=== PATIENT | female | born 2000 | race Caucasian/White ===

== ENCOUNTER 2024-05-21 21:05 | Outpatient (CLI) | payer OTHER, SELFPAY ==
[2024-05-21 21:22] LABS: Albumin Level 4.4 g/dl (3.5-5.0); Basophils % 0.8 % (0.1-2.0); Chloride 114 mmol/L (98-107); Eosinophils # 0.1 K/mm3 (0.0-0.4); Eosinophils % 2.6 % (0.1-12.0); Hematocrit 46.1 % (37.0-47.0); Hemoglobin 14.5 g/dL (12.2-16.2); Lymphocytes # 2.5 K/mm3 (0.7-4.5); Lymphocytes % 50.7 % (10-50); Mean Corpuscular HGB Conc 31.4 g/dL (31.8-35.4); Mean Corpuscular Hemoglobin 31.3 pg (27.0-31.2); Mean Corpuscular Volume 99.7 fl (81-99); Mean Platelet Volume 8.9 fl (7.4-10.4); Monocytes # 0.3 K/mm3 (0.1-1.0); Monocytes % 6.2 % (1.7-9.3); Neutrophils % 39.7 % (37.0-80.0); Platelet Count 232 K/mm3 (142-424); Potassium 4.2 mmoL/L (3.5-5.1); Red Blood Count 4.63 M/mm3 (4.20-5.40); Sodium 138 mmol/L (136-145)
[2024-05-21 21:24] LABS: MANUAL DIFFERENTIAL MANUAL DIFFERENTIAL (MANUAL DIFF)
[2024-05-21 21:25] LABS: Alanine Aminotransferase 15 U/L (12-78); Albumin/Globulin Ratio 1.8 (1.1-1.8); Alkaline Phosphatase 44 U/L (38-126); Anion Gap 9.2 mEq/L (5-15); Aspartate Amino Transferase 32 U/L (14-36); Bilirubin,Total 0.7 mg/dl (0.2-1.3); Blood Urea Nitrogen 11 mg/dl (7-17); Calcium 9.4 mg/dl (8.4-10.2); Carbon Dioxide 19 mmol/L (22.0-30.0); Chol/HDL Ratio 2.5 (1-3.5); Cholesterol 122 mg/dl (140-200); Estimated Glomerular Filt Rate 68 ml/min (>60); GFR (African American) 82 ML/MIN (>60); Globulin 2.5 g/dL (1.3-3.2); Glucose 90 mg/dl (74-100); HDL Cholesterol 49 mg/dl (40-60); Total Protein,Serum 6.9 g/dl (6.3-8.2); Triglycerides 47 mg/dl (30-150); VLDL Cholesterol 9 mg/dL (0-40)
[2024-05-21 21:36] LABS: Burr Cells 2+; Direct LDL Cholesterol 51.45 mg/dL (100-129); Eosinophils % 2 % (0-3); Lymphocytes % 50 % (10-50); Monocytes % 9 % (2-9); Neutrophils % 39 % (42-76); Ovalocytes 1+; Platelet Estimate Normal; Total Cells Counted 100
[2024-05-21 21:37] LABS: Poikilocytosis 1+
[2024-05-21 21:51] LABS: Hemoglobin A1C 4.8 % (4.0-6.0)
[2024-05-21 21:56] LABS: Thyroid Stimulating Hormone 1.45 uIU/mL (0.465-4.68)
== END 2024-05-21 23:59 | disposition home or self-care (01) ==
LOC: LAB.DROPOF 21:07
PROVIDERS: PCP Nurse Practitioner; Visit Provider Nurse Practitioner
DX: G43.909 Migraine, unspecified, not intractable, without status migrainosus (principal); F41.8 Other specified anxiety disorders; Z13.1 Encounter for screening for diabetes mellitus; Z13.220 Encounter for screening for lipoid disorders
CPT/HCPCS: 80050; 80053; 80061; 83036; 84443; 85007; 85025

== ENCOUNTER 2024-09-14 08:51 | Outpatient (CLI) | payer OTHER, SELFPAY ==
[2024-09-14 10:14] LABS: HCG,Quantitative 9 mIU/ml (0-5.42)
[2024-09-15 03:36] LABS: Progesterone 0.4 ng/mL (.)
== END 2024-09-14 23:59 | disposition home or self-care (01) ==
PROVIDERS: Visit Provider Nurse Practitioner Obstetrics & Gynecology
DX: Z34.90 Encounter for supervision of normal pregnancy, unspecified, unspecified trimester (principal)
CPT/HCPCS: 36415; 84144; 84702

== ENCOUNTER 2024-09-16 07:42 | Outpatient (CLI) | payer OTHER, SELFPAY ==
[2024-09-16 09:02] LABS: HCG,Quantitative 3 mIU/ml (0-5.42)
== END 2024-09-16 23:59 | disposition home or self-care (01) ==
LOC: LAB 07:42
PROVIDERS: PCP Nurse Practitioner; Visit Provider Nurse Practitioner Obstetrics & Gynecology
DX: Z32.01 Encounter for pregnancy test, result positive (principal)
CPT/HCPCS: 36415; 84702

== ENCOUNTER 2024-12-11 16:46 | Emergency (ER) | payer OTHER, SELFPAY ==
[2024-12-11 16:51] VITALS: BP 133/76; PULSE 80; RESP 16; TEMP 36.7; O2SAT 100; BMI 23.0
--- OUTSIDE RECORDS SUMMARY | 2024-12-11 16:54 | XMS_ITS | Continuity of Care Document ---
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 Sickle cell disease. ? Gout. ? Spinal cord injury. What are the signs or symptoms? Symptoms of this condition include: # Needing to urinate right away (urgently). # Frequent urination or passing small amounts of urine frequently. # Pain or burning with urination. # Blood in the urine. # Urine that smells bad or unusual. # Trouble urinating. # Cloudy urine. # Vaginal discharge, if you are female. # Pain in the abdomen or the lower back. You may also have: # Vomiting or a decreased appetite. # Confusion. # Irritability or tiredness. # A fever. # Diarrhea. The first symptom in older adults may be confusion. In some cases, they may not have any symptoms until the infection has worsened. How is this diagnosed? This condition is diagnosed based on your medical history and a physical exam. You may also have other tests, including: # Urine tests. # Blood tests. # Tests for sexually transmitted infections (STIs). If you have had more than one UTI, a cystoscopy or imaging studies may be done to determine the cause of the infections. How is this treated? Treatment for this condition includes: # Antibiotic medicine. # Bvmq-var-cqsfrqt medicines to treat discomfort. # Drinking enough water to stay hydrated. If you have frequent infections or have other conditions such as a kidney stone, you may need to see a health care provider who specializes in the urinary tract (urologist). In rare cases, urinary tract infections can cause sepsis. Sepsis is a life-threatening condition that occurs when the body responds to an infection. Sepsis is treated in the hospital with IV antibiotics, fluids, and other medicines. Follow these instructions at home: Medicines # Take vbpo-pzq-wutlhhr and prescription medicines only as told by your health care provider. # If you were prescribed an antibiotic medicine, take it as told by your health care provider. Do not stop using the antibiotic even if you start to feel better. General instructions # Make sure you: ? Empty your bladder often and completely. Do not hold urine for long periods of time. ? Empty your bladder after sex. ? Wipe from front to back after a bowel movement if you are female. Use each tissue one time when you wipe. # Drink enough fluid to keep your urine pale yellow. # Keep all follow-up visits as told by your health care provider. This is important. Contact a health care provider if: # Your symptoms do not get better after 1#2 days. # Your symptoms go away and then return. Get help right away if you have: # Severe pain in your back or your lower abdomen. # A fever. # Nausea or vomiting. Summary # A urinary tract infection (UTI) is an infection of any part of the urinary tract, which includes the kidneys, ureters, bladder, and urethra. # Most urinary tract infections are caused by bacteria in your genital area, around the entrance to your urinary tract (urethra). # Treatment for this condition often includes antibiotic medicines. # If you were prescribed an antibiotic medicine, take it as told by your health care provider. Do not stop using the antibiotic even if you start to feel better. # Keep all follow-up visits as told by your health care provider. This is important. This information is not intended to replace advice given to you by your health care provider. Make sure you discuss any questions you have with your health care provider. Please contact the [facility] Urology Department at /[phone] if you have any questions. Document Released: 05/28/2006 Document Revised: 02/25/2019 Document Reviewed: 02/25/2019 Elsevier Interactive Patient Education # 2019 [employer] Extracted from:Title: Eye Care Office Visit Note Author: JODEE SANTILLAN S, OD Date: 12/11/21 Astigmatism of bilateral eyes [facility]ilateral [facility] Combined list of recent functional and cognitive assessments recorded at [facility] [employer] [facility] ([facility]VA Functional [place] Measurement (FIM) Scale: 1 = Total Assistance (Subject = 0% +), 2 = Maximal Assistance (Subject = 25% +), 3 = Moderate Assistance (Subject = 50% +), 4 = Minimal Assistance (Subject = 75% +), 5 = Supervision, 6 = Modified [place] (Device), 7 = Complete [place] (Timely, Safely). Assessment Date/Time Source Assessment Type Assessment Skill Assessment Score Assessment Details No data available for this section
--- NOTE | 2024-12-11 16:59 | XR_ITS ---
PROCEDURE INFORMATION: Exam: XR Left Foot Exam date and time: 12/11/2024 4:54 PM Age: 24 years old Clinical indication: Injury or trauma; Other: Stepped on nail TECHNIQUE: Imaging protocol: Radiologic exam of the left foot. Views: 3 or more views. COMPARISON: No relevant prior studies available. FINDINGS: Bones/joints: Normal. No acute fracture identified. No radiopaque foreign body visible. Soft tissues: Normal. IMPRESSION: No acute findings.
[2024-12-11] MEDS: TET/DIPHTH/PERT-ADULT 0.5ML SYRINGE 0.5 ML IM (17:06)
--- NOTE | 2024-12-11 17:06 | HMH.EDGENADL ---
Discharge Plan Disposition Patient Disposition: Home, Self-Care Condition: Good Prescriptions Prescriptions: New clindamycin HCl 300 mg capsule 300 mg PO TID Qty: 30 0RF No Action bupropion HCl 150 mg tablet extended release 24 hr 150 mg PO DAILY Qty: 90 3RF rizatriptan 10 mg tablet See Rx Instructions PO .COMPLEX Rx Instructions: take 1 tab at onset of headache; if no relief may repeat 1 tab after at least 2 hrs; max = 3 tabs/24 hr PO topiramate 100 mg capsule,extended release 24hr 100 mg PO DAILY Qty: 90 3RF Referrals Follow up/Referrals: Radha Mayfield APRN [Primary Care Provider] - See instructions Activity Restrictions/Add. Instructions Additional Instructions/Restrictions: Keep area clean and dry Antibiotics as ordered Return if worsening or no improvement Follow-up with PCP Clinical Impressions Clinical Impression: Puncture wound Instructions Patient Instructions: DI for Puncture Wound Print Language Print Language: Greenlandic Discharge ED Provider: Devaughn Le Adult HPI <Mulu Weber ([facility]), ASBESTOS COVERER - Last Filed: 12/11/24 17:13> General Chief complaint: Skin/Abscess/Foreign Body Stated complaint: AO 12/11/24 1630 stepped on gulshan nail left foot Time Seen by Provider: 12/11/24 16:58 Mode of Arrival: Ambulatory Source of Information: Patient Description of Symptoms (Recalled from ER Triage Doc. by RN): PT REPORTS STEPPING ON NAIL TO LEFT FOOT, UNKNOWN LAST TETANUS SHOT History of Present Illness HPI narrative: 24-year-old female presents for stepping on a nail. Last tetanus unknown Related Data Home Medications ?Medication ?Instructions ?Recorded ?Confirmed rizatriptan 10 mg tablet See Rx Instructions PO .COMPLEX 05/18/24 06/09/24 Previous Rx's ?Medication ?Instructions ?Recorded bupropion HCl 150 mg 24 hr tablet, 150 mg PO DAILY #90 tabs 05/18/24 extended release topiramate 100 mg capsule,extended 100 mg PO DAILY #90 caps 05/24/24 release 24 hr clindamycin HCl 300 mg capsule 300 mg PO TID #30 caps 12/11/24 Allergies Allergy/AdvReac Type Severity Reaction Status Date / Time Latex, Natural Rubber Allergy Mild Verified 06/09/24 10:45 PFSH <Mulu Weber ([facility] ASBESTOS COVERER - Last Filed: 12/11/24 17:13> [facility] Disclaimer: The information contained in this section may have been updated after the patient was seen, as this information can be updated by other users. Medical History , ASBESTOS COVERER) Encounter for contraceptive surveillance Depression with anxiety Migraine IUD (intrauterine device) in place Surgical History , ASBESTOS COVERER) Hx of rhinoplasty Family History , ASBESTOS COVERER) Coronary artery disease Heart attack Social History , ASBESTOS COVERER) Smoking Status: Current every day smoker tobacco type: smokeless tobacco alcohol intake: never current occupational status: employed Travel in the last 8 weeks: Inside the [place] Have you lived/traveled outside US in past 30 days?: No Contact w/someone who lives/traveled outside US past 30 days?: No Exposure to someone with infectious disease in past 14 days?: No Do you have a fever (greater than 100.4 F or 38 C)?: No Have you tested positive for COVID-19: No Exposed to someone with COVID-19 in past 14 days?: No Do you have a sore throat?: No Do you have a cough?: No Do you have any weakness?: No Do you have any diarrhea?: No Are you experiencing any unusual bleeding?: No Do you have any muscle aches/pain?: No Do you have any abdominal pain?: No Are you experiencing loss of taste or smell?: No Other Medical History Have you received the Pneumonia Vaccine: No <[facility], ASBESTOS COVERER - Last Filed: 12/11/24 17:13> ROS Obtained: Yes Systems reviewed as appropriate & no additional complaints except as documented Integumentary/Breasts Skin/Breast: Reports system reviewed and no additional complaints, except as documented and Reports as per HPI Physical Exam <Mulu [facility] ASBESTOS COVERER - Last Filed: 12/11/24 17:13> General General appearance: alert and in no apparent distress Head Head exam: atraumatic Eye Eye exam: Present normal appearance ENT ENT exam: Present normal exam Respiratory Respiratory exam: Present normal lung sounds bilaterally Cardiovascular Cardiovascular exam: Present regular rate and normal rhythm Expanded Lower Extremity Exam Left: Bottom foot image: 1. Puncture wound Neurological Exam Neurological exam: Present alert and oriented X3 Skin Skin exam: Present warm Medical Decision Making <Mulu Weber ([facility]), ASBESTOS COVERER - Last Filed: 12/11/24 17:13> Medical Records Medical records reviewed: Yes I reviewed the patient's medical records. Screening: Per USPSTF and CDC recommendations, given the prevalence of disease in our region, it is our hospital?s policy to screen for HIV and viral Hepatitis for all patients aged 18 and over and those with ongoing risk factors. Wilmer Inquiry Pt receiving controlled substance: No Vital Signs: 12/11/24 16:51 12/11/24 17:24 Temperature 98.0 F 98 F Temperature Source Oral Pulse Rate 74 Pulse Rate [Radial] 80 Respiratory Rate 16 18 Blood Pressure 127/81 Blood Pressure [Right Arm] 133/76 Blood Pressure Mean [Right Arm] 95 Blood Pressure Source [Right Arm] Automatic Cuff Blood Pressure Position [Right Arm] Sitting 02 Sat by Pulse Oximetry 100 Oxygen Delivery Method Room Air Orders (Tests/Meds): ED MEDICATIONS Discontinued Medications Generic Name Dose Route Start Last Admin Trade Name Freq PRN Reason Stop Dose Admin Tetanus/Reduced Diphtheria/Acell Pertussis 0.5 ml 12/11/24 17:00 12/11/24 17:06 Tet/Diphth/Pert-Adult 0.5ml Syringe IM 12/11/24 17:01 0.5 ml .ONCE ONE Administration ORDERS Category Date Time Status Foot XR left minimum 3 views [XR foot LT min 3V] Stat Exams 12/11/24 16:59 Completed Medical Decision Narrative: In summary patient is a 24-year-old female who presents to the emergency department for evaluation of stepping on a nail that went through her croc and into her foot. Patient is hemodynamically stable upon arrival, afebrile. Small puncture wound noted to the outer bottom of the left foot. Differential diagnosis includes puncture wound. Initial workup will be conducted with x-ray, tetanus shot. Initial inventions include x-ray. Initial workup reviewed by me x-ray negative. Upon repeat evaluation patient sitting comfortably in the chair with no complaints. Given this patient appropriate for discharge at this time with a prescription for antibiotics. <Devaughn Le MD - Last Filed: 12/12/24 19:24> Vital Signs: 12/11/24 16:51 12/11/24 17:24 Temperature 98.0 F 98 F Temperature Source Oral Pulse Rate 74 Pulse Rate [Radial] 80 Respiratory Rate 16 18 Blood Pressure 127/81 Blood Pressure [Right Arm] 133/76 Blood Pressure Mean [Right Arm] 95 Blood Pressure Source [Right Arm] Automatic Cuff Blood Pressure Position [Right Arm] Sitting 02 Sat by Pulse Oximetry 100 Oxygen Delivery Method Room Air Orders (Tests/Meds): ED MEDICATIONS Discontinued Medications Generic Name Dose Route Start Last Admin Trade Name Freq PRN Reason Stop Dose Admin Tetanus/Reduced Diphtheria/Acell Pertussis 0.5 ml 12/11/24 17:00 12/11/24 17:06 Tet/Diphth/Pert-Adult 0.5ml Syringe IM 12/11/24 17:01 0.5 ml .ONCE ONE Administration ORDERS Category Date Time Status Foot XR left minimum 3 views [XR foot LT min 3V] Stat Exams 12/11/24 16:59 Completed Medical Decision Narrative: In summary patient is a 24-year-old female who presents to the emergency department for evaluation of stepping on a nail that went through her croc and into her foot. Patient is hemodynamically stable upon arrival, afebrile. Small puncture wound noted to the outer bottom of the left foot. Differential diagnosis includes puncture wound. Initial workup will be conducted with x-ray, tetanus shot. Initial inventions include x-ray. Initial workup reviewed by me x-ray negative. Upon repeat evaluation patient sitting comfortably in the chair with no complaints. Given this patient appropriate for discharge at this time with a prescription for antibiotics. I was consulted by the [place], and we discussed the complexity of the problems being addressed.I approved the treatment and management plan for this patient?s care in the Emergency Department, thus performing a substantive portion of the medical decision making.Signed, Devaughn Le MD [facility] Critical Care <Mulu Weber ([facility]), ASBESTOS COVERER - Last Filed: 12/11/24 17:13> Critical Care Time Critical Care Time: No
[2024-12-11 17:24] VITALS: BP 127/81; PULSE 74; RESP 18; TEMP 36.6; O2SAT 99
== END 2024-12-11 17:25 | disposition home or self-care (01) ==
PROVIDERS: Emergency Provider Emergency Medicine; PCP Nurse Practitioner
DX: S91.332A Puncture wound without foreign body, left foot, initial encounter (principal); W45.0XXA Nail entering through skin, initial encounter; Z23 Encounter for immunization
CPT/HCPCS: 90471; 99283; 73630; 90715

== ENCOUNTER 2025-01-16 08:30 | Emergency (ER) | payer OTHER, SELFPAY ==
--- OUTSIDE RECORDS SUMMARY | 2025-01-16 08:37 | XMS_ITS | Continuity of Care Document ---
Author Name [facility] Organization [facility] Care Team Providers Care Senior Advocate Name Role Phone [facility] Unavailable Unavailable Problems Combined list of problems from [facility] facilities. It does not include entries that were removed or entered in error. 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) Active Condition 0420[facility] Headache Active Condition [facility] Headache due to injury of head and neck Active Condition [facility] IUD change due Active Condition 0420[facility] Migraine variants Active Condition [facility]20 [facility] Migraine without aura Active Condition [facility] Tension headache [facility] UTI - Urinary tract infection Active Condition [facility] Medications Combined list of outpatient medications from [facility] facilities.Medications provided include 1) outpatient medications from the last 15 months, and 2) patient-reported medications. Medication Details Route Status Patient Instructions Prescription Expires Prescription Number Last Dispense Date Ordering Provider Order Date Order Qty Source acetaminoph en 500 mg oral tablet acetamin ophen 500 mg oral tablet Start Date: 07/23/19 Stop Date: 10/02/21 Status: Anjana renee Repeat number: 1 Discont inued 10/02/20212021 No Facilit y Access amitriptyli ne 10 mg oral tablet 1 tab(s), Oral, every day at bedtime, PRN headache , # 30 tab(s), 0 total refill(s ), Maintena nce, Pharmacy : [facility] Oral (given by mouth) Discont inued 10/01/2022 2 2022 30.0 0420[facility] amitriptyli ne 10 mg oral tablet 1 tab(s), Oral, every day at bedtime, PRN headache , # 30 tab(s), 0 total refill(s ), [facility], Pharmacy : [facility] Oral (given by mouth) Discont inued 11/20/20222022 30.0 0420[facility] amitriptyli ne 10 mg oral tablet 1 tab(s), Oral, every day at bedtime, PRN headache , # 30 tab(s), 3 total refill(s ), [facility], Pharmacy : [facility] Oral (given by mouth) Discont inued 01/10/2023 3 2022 30.0 0420[facility] BUPROPION XL (bupropion HCl), 150 MG, TAB ER 24H, ORAL, [employer], 500 ea. BOTTLE Active [id number] 4 2023 90 Pharmac y Data Transac tion Service Facilit y BUPROPION XL (bupropion HCl), 150 MG, TAB ER 24H, ORAL, [facility], 500 ea. BOTTLE Active [id number] 4 2023 90 Pharmac y Data Transac tion Service Facilit y chlorhexidi ne 0.12% mucous membrane liquid chlorhex idine 0.12% mucous membrane liquid Start Date: 07/23/19 Stop Date: 10/02/21 Status: Anjana renee Repeat number: 1 Discont inued 10/02/20212021 No Facilit y Access Diflucan 150 mg oral tablet 1 tab(s), Oral, As Directed , take 1 tab every 72h, # 2 tab(s), 0 total refill(s ), Acute, 01/10/23 12:10:00 PM CDT, Pharmacy : [facility] Oral (given by mouth) Discont inued 01/10/2023 3 2022 2.0 0420[facility] doxepin 3 mg oral tablet 1 tab(s), Oral, every day at bedtime, as needed for sleep, # 30 tab(s), 5 total refill(s ), Acute, [facility] : [id number] Oral (given by mouth) Discont inued 09/25/20232023 30.0 0067[facility] Excedrin Oral, every 6 hr, 0 total refill(s ), Maintena nce Oral (given by mouth) Discont inued 10/01/20222022 0420[facility] Flexeril Oral, TID, 0 total refill(s ), Maintena nce Oral (given by mouth) Discont inued 09/25/20232023 0420[facility] fluconazole 150 mg oral tablet 1 tab(s), Oral, As Directed , X 1 days, # 1 tab(s), 0 total refill(s ), Acute, 11/21/22 9:10:00 AM CDT, Pharmacy : [facility] Oral (given by mouth) Complet ed 11/21/2022 3 2022 1.0 0420[facility] ibuprofen 600 mg oral tablet ibuprofe n 600 mg oral tablet Start Date: 07/23/19 Status: Ordered Repeat number: 1 Ordered 2019 No Facilit y Access PreviDent 5000 Booster 1.1% topical paste See Instruct ions, Apply 1 thin ribbon to toothbru sh. Elaine thorough ly at bedtime as directed by provider ., # 51 g, 0 total refill(s ), Maintena nce, Pharmacy : [facility] Discont inued 04/16/2022 2 2021 51.0 0420[facility] RIZATRIPTAN (rizatripta n benzoate), 10 MG, TABLET, ORAL, [employer], 18 ea. BLIST PACK Active [id number] 4 2023 36 Pharmac y Data Transac tion Service Facilit y RIZATRIPTAN (rizatripta n benzoate), 10 MG, TABLET, ORAL, [employer], 18 ea. BLIST PACK Active [id number] 4 2023 12 Pharmac y Data Transac tion Service Facilit y rizatriptan 10 mg oral tablet See Instruct ions, Take one tablet by mouth at onset of migraine headache , may repeat dose every 2 hours up to a maximum of 30 mg in 24 hours, # 6 tab(s), 0 total refill(s ), Maintena nce Discont inued 11/20/20232023 6.0 0420[facility] rizatriptan 10 mg oral tablet See Instruct ions, Take one tablet by mouth at onset of migraine headache , may repeat dose every 2 hours up to a maximum of 30 mg in 24 hours, # 12 tab(s), 1 total refill(s ), Acute, 02/19/24 11:00:00 PM CDT, Pharmacy : [id number] Complet ed 02/20/20242023 12.0 0420[facility] SUMAtriptan 25 mg oral tablet See Instruct ions, Take 1 tablet by mouth at onset of migraine headache . May repeat dose after 2 hours if needed. Max of 100mg within 24 hours, # 9 tab(s), 0 total refill(s ), Maintena nce, Pharmacy : [facility] Discont inued 05/13/2022 2 2021 9.0 0420[facility] SUMAtriptan 25 mg oral tablet See Instruct ions, Take 1 tablet by mouth at onset of migraine headache . May repeat dose after 2 hours if needed. Max of 100mg within 24 hours, # 9 tab(s), 0 total refill(s ), Maintena nce, Pharmacy : [facility] Discont inued 10/01/2022 2 2022 9.0 0420[facility] TOPIRAMATE (TOPIRAMATE ), 100 MG, TABLET, ORAL, [employer] 60 ea. BOTTLE Active [id number] 4 2023 180 Pharmac y Data Transac tion Service Facilit y TOPIRAMATE (TOPIRAMATE ), 100 MG, TABLET, ORAL, [employer] 60 ea. BOTTLE Active [id number] 4 2023 180 Pharmac y Data Transac tion Service Facilit y topiramate 25 mg oral capsule 1 cap(s), Oral, BID, 0 total refill(s ), Maintena nce Oral (given by mouth) Ordered 2023 0420[facility] Wellbutrin XL 150 mg/24 hours oral tablet, extended release 1 tab(s), Oral, every 24 hr, # 30 tab(s), 0 total refill(s ), Maintena aze, Pharmacy : [id number] Oral (given by mouth) Discont inued 09/30/20232023 30.0 0420[facility] Wellbutrin XL 150 mg/24 hours oral tablet, extended release 1 tab(s), Oral, every 24 hr, # 30 tab(s), 0 total refill(s ), Maintena aze, Pharmacy : [facility] Oral (given by mouth) Discont inued 10/28/20232023 30.0 0420[facility] Wellbutrin XL 150 mg/24 hours oral tablet, extended release 1 tab(s), Oral, every 24 hr, # 90 tab(s), 3 total refill(s ), Maintena nce, Pharmacy : [facility] Oral (given by mouth) Ordered 2023 90.0 0420[facility] Wellbutrin XL 150 mg/24 hours oral tablet, extended release 1 tab(s), Oral, every 24 hr, # 60 tab(s), 1 total refill(s ), Hard Stop, Pharmacy : [id number] Oral (given by mouth) Complet ed 10/31/20232023 60.0 0420[facility] Wellbutrin XL 300 mg/24 hours oral tablet, extended release 1 tab(s), Oral, Daily, # 90 tab(s), 3 total refill(s ), Maintena nce, Pharmacy : [facility] Oral (given by mouth) Discont inued 04/16/2022 2 2021 90.0 [facility]20[facility] Allergies, Adverse Reactions, Alerts Combined list of allergies from Department of Defense and Veterans Affairs facilities. It does not include entries that were removed or entered in error. Substance Category Reaction Severity Reaction type Status Date Reported Comments Source LATEX, NATURAL RUBBER {Cla } Drug allergy (disorder) Rash or Itch, Other: POSITIVE LATEX IGE. active 9 [facility] LATEX, NATURAL RUBBER {Cla } Allergy to substance Rash or Itch Moderate Active [address] [place] [address] Immunizations Combined list of available immunizations from the Department of Defense and Veterans Affairs facilities. Immunization Series Date Given Administered By Site Reaction Lot Number CVX Code Drug Labeling Specialist Status Comments Source influenza virus vaccine, inactivated 2022 [id number] complet ed influenza virus vaccine, inactivat ed 06/19/23 Recorded [facility]20[facility] influenza, injectable, quadrivalent, contains preservative 0 2021 [id number] 158 Seqirus (SEQ) comple t ed influenza , injectabl e, quadrival ent, contains preservat kassandra DoD Influenza, injectable, quadrivalent, preservative free 0 2020 [id number] [employer] (CSL) complet ed Influenza , injectabl e, quadrival ent, preservat kassandra free [facility] SARS-COV-2 (COVID-19) vaccine, mRNA, spike protein, LNP, preservative free, 30 mcg/0.3mL dose 2 2020 [id number] [employer] (PFR) complet ed SARS-COV- 2 (COVID-19 ) vaccine, mRNA, spike protein, LNP, preservat kassandra free, 30 mcg/0.3mL dose DoD SARS-COV-2 (COVID-19) vaccine, mRNA, spike protein, LNP, preservative free, 30 mcg/0.3mL dose 1 2020 [id number] 208 [employer] (PFR) complet ed SARS-COV- 2 (COVID-19 ) vaccine, mRNA, spike protein, LNP, preservat kassandra free, 30 mcg/0.3mL dose DoD Influenza, injectable, quadrivalent, preservative free 0 2020 [id number] 150 Se[employer]irus (SEQ) complet ed Influenza , injectabl e, quadrival ent, preservat kassandra free DoD influenza, injectable, quadrivalent- pf 2018 [id number] 039 150 Se[employer]irus complet ed influenza , injectabl e, quadrival ent-pf 06/23/19 Given Ambulat ory Pharmac y influenza, injectable, quadrivalent- pf 2018 [id number] 039 150 Se[employer]irus complet ed influenza , injectabl e, quadrival ent-pf 06/23/19 Given Ambulat ory Pharmac y Influenza, injectable, quadrivalent, preservative free 0 2018 [id number] 039 150 Se[employer] (SEQ) complet ed Influenza , injectabl e, quadrival ent, preservat kassandra free DoD hepatitis A-hepatitis B vaccine 2017 [id number] 104 GlaxoSmithKli ne complet ed hepatitis A-hepatit is B vaccine 08/03/18 Given Ambulat ory Pharmac y hepatitis A-hepatitis B vaccine 2017 [id number] 104 GlaxoSmithKli ne complet ed hepatitis A-hepatit is B vaccine 08/03/18 Given Ambulat ory Pharmac y hepatitis A and hepatitis B vaccine 3 2017 [id number] 104 [facility] (SKB) complet ed hepatitis A and hepatitis B vaccine DoD influenza, injectable, quadrivalent- pf 2017 [id number] 150 Seqirus complet ed influenza , injectabl e, quadrival ent-pf 06/03/18 Given Ambulat ory Pharmac y influenza, injectable, quadrivalent- pf 2017 [id number] 150 Se[employer]irus complet ed influenza , injectabl e, quadrival ent-pf 06/03/18 Given Ambulat ory Pharmac y Influenza, injectable, quadrivalent, preservative free 0 2017 [id number] 150 Seqirus (SEQ) comple t ed Influenza , injectabl e, quadrival ent, preservat kassandra free DoD hepatitis A-hepatitis B vaccine 2017 [id number] 104 GlaxoSmithKli ne complet ed hepatitis A-hepatit is B vaccine 11/21/17 Given Ambulat ory Pharmac y hepatitis A-hepatitis B vaccine 2017 [id number] 104 GlaxoSmithKli ne complet ed hepatitis A-hepatit is B vaccine 11/21/17 Given Ambulat ory Pharmac y hepatitis A and hepatitis B vaccine 2 2017 [id number] 104 [employer]Kline (SKB) complet ed hepatitis A and hepatitis B vaccine DoD measles and rubella virus vaccine 0 2017 04 () Not Given measles and rubella virus vaccine DoD varicella virus vaccine 0 2017 21 () Not Given varicella virus vaccine DoD hepatitis A-hepatitis B vaccine 2017 [id number] 104 GlaxoSmithKli ne complet ed hepatitis A-hepatit is B vaccine 10/14/17 Given Ambulat ory Pharmac y hepatitis A-hepatitis B vaccine 2017 [id number] 104 GlaxoSmithKli ne complet ed hepatitis A-hepatit is B vaccine 10/14/17 Given Ambulat ory Pharmac y hepatitis A and hepatitis B vaccine 1 2017 [id number] 104 [employer] (SKB) complet ed hepatitis A and hepatitis B vaccine DoD adenovirus vaccine, live 2017 [id number] 143 complet ed adenoviru s vaccine, live 10/09/17 Given Ambulat ory Pharmac y adenovirus vaccine, live 2017 [id number] 7 143 complet ed adenoviru s vaccine, live 10/09/17 Given Ambulat ory Pharmac y Adenovirus, type 4 and type 7, live, oral 0 2017 [id number] 7 143 (TRN) complet ed Adenoviru s, type 4 and type 7, live, oral DoD tetanus, diphtheria, acellular pertu is 2017 [id number] 115 sanofi pasteur complet ed tetanus, diphtheri a, acellular pertussis 10/08/17 Given Ambulat ory Pharmac y meningococcal A,C,Y,W-135 (MCV4P) 2017 [id number] 114 sanofi pasteur complet ed meningoco ccal A,C,Y,W-1 35 (MCV4P) 10/08/17 Given Ambulat ory Pharmac y poliovirus vaccine, inactivated 2017 [id number] 10 sanofi pasteur complet ed polioviru s vaccine, inactivat ed 10/08/17 Given Ambulat ory Pharmac y Influenza, inj, MDCK, quadrivalent- pf 2017 [id number] 171 Seqirus complet ed Influenza , inj, MDCK, quadrival ent-pf 10/08/17 Given Ambulat ory Pharmac y Influenza, inj, MDCK, quadrivalent- pf 2017 [id number] 171 Seqirus complet ed Influenza , inj, MDCK, quadrival ent-pf 10/08/17 Given Ambulat ory Pharmac y tetanus, diphtheria, acellular pertu is 2017 [id number] 115 sanofi pasteur complet ed tetanus, diphtheri a, acellular pertussis 10/08/17 Given Ambulat ory Pharmac y meningococcal A,C,Y,W-135 (MCV4P) 2017 [id number] 114 sanofi pasteur complet ed meningoco ccal A,C,Y,W-1 35 (MCV4P) 10/08/17 Given Ambulat ory Pharmac y poliovirus vaccine, inactivated 2017 [id number] 10 sanofi pasteur complet ed polioviru s vaccine, inactivat ed 10/08/17 Given Ambulat ory Pharmac y poliovirus vaccine, inactivated 0 2017 [id number] 10 Sanofi Pasteur ([facility]) complet ed polioviru s vaccine, inactivat ed DoD meningococcal polysaccharid e (groups A, C, Y and W-135) diphtheria toxoid conjugate vaccine (MCV4P) 0 2017 [id number] 114 Sanofi Pasteur ([facility]) complet ed meningoco ccal polysacch aride (groups A, C, Y and W-135) diphtheri a toxoid conjugate vaccine (MCV4P) DoD tetanus toxoid, reduced diphtheria toxoid, and acellular pertu is vaccine, adsorbed 0 2017 [id number] 115 Sanofi Pasteur ([facility]) complet ed tetanus toxoid, reduced diphtheri a toxoid, and acellular pertussis vaccine, adsorbed DoD Influenza, injectable, Madin Naz Canine Kidney, preservative free, quadrivalent 0 2017 [id number] 171 Seqirus (SEQ) comple t ed Influenza , injectabl e, Madin Naz Canine Kidney, preservat kassandra free, quadrival ent DoD Results Combined list of recent chemistry, hematology and other laboratory results from Department of Defense and Veterans Affairs, ranging from 15 months to all on record, depending upon the facility. Order Name Results Value Reference Range Date Interpretation Specimen Comments Source Infectio us Disease HIV-1/2 AG/AB 4G CDD LC NEGATIVE 07/17 Result Comment: Performed At: 1 [facility] [id number] [place] [address] [address] [place] [address] YAW ENGLISH PHD Ph:[phone] [facility] Infectio us Disease Source of Test.LC PD HealthAs sess ( 3 2:54 PM) 07/17 N [facility] Urinalys is WBC Ur LC None seen 11/20 zzIOC Standard Urinalys is RBC Ur LC 0-2 11/20 zzIOC Standard Urinalys is Epithelial Cells (non renal) Ur LC 0-10 11/20 zzIOC Standard Urinalys is Casts Ur LC None seen 11/20 zzIOC Standard Urinalys is Bacteria LC Few 11/20 Result Comment: Performed At: [address] [id number] Ankit Johnson MD Ph:[phone] zzIOC Standard Chemistr y Bilirubin Ur LC Negative 11/20 [facility] Chemistr y Appearance LC Clear 11/20 [facility] Chemistr y Occult Blood Ur LC Trace 11/20 A [facility] Chemistr y Urinalysis Reflex LC COMMENT 11/20 Result Comment: This specimen has reflexed to a Urine Culture. Performed At: [address] [id number] Ankit Johnson MD Ph:[phone] 0420[facility] Chemistr y Urine Color LC Yellow 11/20 0420[facility] Chemistr y Ketones Ur LC Negative 11/20 0420[facility] Chemistr y pH Ur LC 7.5 11/20 [facility] Microscopi c Exam LC See below: 11/20 Result Comment: Microscopic was indicated and was performed. Performed At: [address] [id number] Ankit Johnson MD Ph:[phone] 0420[facility] Chemistr y Glucose Ur LC Negative 11/20 0420[facility] Chemistr y Specific [place] 1.014 11/20 042-[facility] Chemistr y Nitrite, Urine Ur LC Negative 11/20 0420[facility] Chemistr y Protein Ur LC Negative 11/20 0420[facility] Chemistr y Urobilinog en,Semi-Qn Ur LC 0.2 mg/dL 11/20 0420[facility] Chemistr y WBC Esterase Ur LC Trace 11/20 A 0420A-[facility] AP Specimen s Pap Lb (Liquid-ba sed) LC Note 12/10 Result Comment: TESTS RESULT FLAG UNITS REF RANGE LAB ----- Clinician Provided Cytology Information No. of containers. .01 ThinPrep Vial DIAGNOSIS: 01 NEGATIVE FOR INTRAEPITHE LIAL LESION OR MALIGNANCY. Specimen adequacy: 01 Satisfactor y for evaluation. Endocervica l and/or squamous metaplastic cells (endocervic al component) are present. Performed by: 01 Sebastian Yanezist (ASCP) . 01 Note: Note 02 The [...] tical Abnormal ----- Performed at: [address] [address] Alex Pham MD, Phone: [address] [address] Alex Pham MD, Phone: Performed At: [address] [id number] Ankit Johnson MD Ph:[phone] [address] [place] [address] Vital Signs Combined list of inpatient and outpatient Vital Signs from Department of Defense and Veterans Affairs, ranging from 12 months to all on record, depending upon the facility. Vital Sign Value Date Comments Source Mean Arterial Pressure, Calc 90 mm[Hg] 11/22/2022 12:48:[address] [place] [address] Peripheral Pulse Rate 83 bpm 11/22/2022 12:48:00 [facility] Respiratory Rate 18 br/min 11/22/2022 12:48:[address] [place] [address] Temperature Oral 36.8 Tamiko 11/22/2022 12:48:00 [facility] Systolic Blood Pressure 112 mm[Hg] 11/23/19 23 12:48:00 [facility] Diastolic Blood Pressure 79 mm[Hg] 023 12:48:00 [facility] Peripheral Pulse Rate 69 bpm 12/10/2021 12:23:00 [facility] Mean Arterial Pressure, Calc 99 mm[Hg] 12/10/2021 12:23:00 [facility] Temperature Oral 37 Tamiko 12/10/2021 12:23:00 [facility] Systolic Blood Pressure 124 mm[Hg] 12/11/19 22 12:23:00 [facility] Diastolic Blood Pressure 87 mm[Hg] 022 12:23:00 [facility] Peripheral Pulse Rate 89 bpm 11/20/2022 13:46:00 [facility] Mean Arterial Pressure, Calc 93 mm[Hg] 11/20/2022 13:46:00 [facility] Systolic Blood Pressure 117 mm[Hg] 11/21/19 23 13:46:00 [facility] Diastolic Blood Pressure 81 mm[Hg] 023 13:46:00 [facility] Encounters Combined list of: 1) Encounters from Department of Veterans Affairs facilities going backup to the last 18 months, not all VA inpatient encounters are included; 2) Encounters from the Department of Defense facilities going backup to 280 months. Location Location Details Encounter Type Encounter Number Reason For Visit Attending Provider ADM Date DC Date Status Disposition Source [facility](Optomet ry [place]) OUTPATIENT [id number] ROUT EYE EXAM YANET MCBRIDE 09/07 Released w/o Limitations [facility](Opt ometry [place]) [facility](Allergy [facility]) OUTPATIENT [id number] CONTACT DERMATI ANASTACIA RETANA 12/09 Released w/o Limitations [facility](All ergy Clinic [facility]) [facility]) OUTPATIENT [id number] Allergy f/u DREW SMITHD 12/17 Released w/o Limitations [facility](All ergy Clinic [facility]) [facility]) OUTPATIENT [id number] skin test DREW SMITHD 12/22 Released w/o Limitations [facility](All ergy Clinic [facility]) [facility](Dermato logy [place]) OUTPATIENT [id number] ALLERGI C CONTACT DERMATI TIS DUE TO OTHER AGENTS KARI CHIN 05/28 Released w/o Limitations [facility](Tucker matolog y [place]) [facility]([employer] [place]) OUTPATIENT [id number] Well Women Exam JAVIER ANAYA 11/03 Released w/o Limitations [facility]([employer] [place]) [facility]([employer] [place]) OUTPATIENT [id number] control . JAVIER ANAYA 11/09 Released w/o Limitations [facility]([employer] [place]) [facility]([employer] [place]) TELE CONSULT [id number] Notes Entered by: ELKIN URBINA N 14 Jun 2020 0951 ------- ------- ------- ------- -- Request pap smear result ELKIN URBINA 06/14 [facility]([employer] [place]) [facility](COVID19 Scrn & Test [facility]) OUTPATIENT [id number] ACTIVE DUTY = AD,HRAC CARLOS [email or web address] NANCY THEODORE 01/24 Released w/o Limitations [facility](COV ID19 Scrn & Test [facility]) [facility](COVID19 Scrn & Test [facility]) OUTPATIENT [id number] SYMPTOM ATIC ACTIVE DUTY HAROON HURD 04/26 Released w/o Limitations [facility](COV ID19 Scrn & Test [facility]) [facility](Emergen cy Medicine [facility]) OUTPATIENT [id number] KEYSHA SANCHEZ 04/26 Released w/o Limitations [facility](Annabel rgency Medicin e NMCP) [facility](Sl eep Clinic [facility]) OUTPATIENT [id number] G47.33 Sleep Apnea/f /[id number]/ no email LEYDI HERNANDEZ 10/22 Released w/o Limitations [facility]( Sleep Clinic [facility]) Procedures Combined list of: 1) Procedures from Department of Veterans Affairs facilities [facility], not all VA non-surgical procedures are included; 2) All procedures from the Department of Defense facilities. Procedure Procedure Type Code Date Perfomer Comments Sourc e SCREENING PAPANICOLAOU SMEAR; OBTAINING, PREPARING AND CONVEYANCE OF CERVICAL OR VAGINAL SMEAR TO LABORATORY 2019 [facility] PERCUTANEOUS TESTS (SCRATCH, PUNCTURE, PRICK) WITH ALLERGENIC EXTRACTS, IMMEDIATE TYPE REACTION, INCLUDING TEST INTERPRETATION AND REPORT, SPECIFY NUMBER OF TESTS 2018 [facility] FITTING OF SPECTACLES, EXCEPT FOR APHAKIA; MONOFOCAL 2018 [facility] Allergy Percutaneous tests - allergenic extracts Allergy Percutaneous tests - allergenic extracts [id number] 2018 ANASTACIA SMITH Allergy 38Food & Aeroallergen pricks applied to bilateral forearms . Extracts provided by [facility] and supplied by [facility]. Serums 27 Jan 2019.Allergy skintest procedure by Meg Clarke LPN [facility] Spectacles Services Fitting Monofocals (Not For Aphakia) [facility] Fitting Monofocals (Not For Aphakia) [id number] 2018 YANET MCBRIDE [facility] Determination Of Refractive State Determination Of Refractive State [id number] 2018 YANET MCBRIDE [facility] Ophthalmological New Patient Start Comprehensive Care Ophthalmological New Patient Start Comprehensive Care [id number] 2018 YANET MCBRIDE [facility] Screening papanicolaou smear; obtaining, preparing and conveyance of cervical or vaginal smear to laboratory JAVIER ANAYA [facility] Non-Physician Phone Call To Patient/Provider Brief (5-10min) Non-Physician Phone Call To Patient/Provider Brief (5-10min) [id number] NANCY THEODORE [facility] Patient education, not otherwise cla ified, non-physician provider, individual, per se NANCY Garcia [facility] Brief communication technology-based service, e.g. virtual check-in, by a physician or other qualified health care profe bel who can report evaluation and management services, provided to an established patient, not originating from a related E/M service provided within the previous 7 days nor leading to an E/M service or procedure within the next 24 hours or soonest available appointment; 5-10 minutes of medical discu avelino NANCY THEODORE [facility] No data available for this section Ambulato ry Pharmacy Social History Combined list of available smoking, tobacco, and other social history from [facility] and [facility] facilities. Social History Type Response Date Comment [facility] e Sex Representation Female (finding) 05/22/2020 Unknown Organization This section is an empty social history section. [facility] Sexual Orientation Ambula tory Pharmacy Gender identity Ambulator y Pharmacy Assessment and Plan Combined list of future care activities from Department of Defense and Veterans Affairs facilities (e.g., assessment and plan notes, appointments, orders, and referrals). Additional future care activities may be listed in the Plan of Care section. Result Assessment and Plan Date Source Assessment and Plan Extracted from:Title : PHA/MHA Author: JUNIE NEWMAN NP Date: 12/19/23 1.?EXAM/ASSESSMENT, OCCUPATIONAL, LABORATORY APPARATUS [place] PERIODIC HEALTH ASSESSMENT (PHA) Online PHA/MHA complete. ?Please see EPHA for full details.?Gen preventative health discussion with age specific guidelines/recommendations discussed.?Member meets [facility] medical standards IAW COMDTINST M600.1 chapter 3 at this time. AFFD and cleared for retention and mobility.?? ? -? ?No?referrals indicated at this time _ ? -? ?Is?due for IMR requirements _Pap smear already has referral ? -? ?Not?due for preventative screening _ ? F/u PRN. ? ? ? Extracted from:Title: Rx renewed Author: JUNIE NEWMAN NP Date: 11/20/23 1.?Migraine without aura Ho migraine [...] Extracted from:Title: Rx refill Author: JUNIE NEWMAN ZONE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
[2025-01-16 08:39] VITALS: BP 121/86; PULSE 85; RESP 20; TEMP 36.8; O2SAT 100; BMI 22.6
--- NOTE | 2025-01-16 09:38 | ED_ITS ---
Discharge Plan Disposition Patient Disposition: Home, Self-Care Prescriptions Prescriptions: New prednisone 50 mg tablet 50 mg PO DAILY 5 Days Qty: 5 0RF Rx Instructions: Please begin 1 day after ED visit No Action bupropion HCl 150 mg tablet extended release 24 hr 150 mg PO DAILY Qty: 90 3RF rizatriptan 10 mg tablet See Rx Instructions PO .COMPLEX Rx Instructions: take 1 tab at onset of headache; if no relief may repeat 1 tab after at least 2 hrs; max = 3 tabs/24 hr PO topiramate 100 mg capsule,extended release 24hr 100 mg PO DAILY Qty: 90 3RF clindamycin HCl 300 mg capsule 300 mg PO TID Qty: 30 0RF Referrals Follow up/Referrals: Radha Mayfield APRN [Primary Care Provider] - See instructions Activity Restrictions/Add. Instructions Additional Instructions/Restrictions: Your symptoms appear to be consistent with localized contact dermatitis likely secondary to plant oil exposure such as would be from poison stephanie or poison sumac. Does not appear to be herpetic in nature. Please follow-up with dermatology if not improving in 1 to 2 weeks. Clinical Impressions Clinical Impression: Contact dermatitis Instructions Patient Instructions: DI for Skin Abscess Print Language Print Language: Georgian Discharge ED Provider: Fabricio Philippe General Adult HPI General Chief complaint: Skin/Abscess/Foreign Body Stated complaint: rash/swelling in face Time Seen by Provider: 01/16/25 09:06 Mode of Arrival: Ambulatory Source of Information: Patient Description of Symptoms (Recalled from ER Triage Doc. by RN): pt started having a rash on her face that itches and null on friday above right eye and then it has gone across nose and left eye is swollen now, pt is worried its poison stephanie History of Present Illness HPI narrative: Patient is a 24-year-old who who is here with a pruritic rash on the bridge of her nose and bilateral cheek areas. Been ongoing for several days. States it is pretty significantly pruritic and is bothering her. Has been working outside regularly but no definitive exposures to poison stephanie or poison sumac etc. No rash elsewhere. Related Data Home Medications ?Medication ?Instructions ?Recorded ?Confirmed rizatriptan 10 mg tablet See Rx Instructions PO .COMPLEX 05/18/24 06/09/24 Previous Rx's ?Medication ?Instructions ?Recorded bupropion HCl 150 mg 24 hr tablet, 150 mg PO DAILY #90 tabs 05/18/24 extended release topiramate 100 mg capsule,extended 100 mg PO DAILY #90 caps 05/24/24 release 24 hr clindamycin HCl 300 mg capsule 300 mg PO TID #30 caps 12/11/24 prednisone 50 mg tablet 50 mg PO DAILY 5 days #5 tabs 01/16/25 Allergies Allergy/AdvReac Type Severity Reaction Status Date / Time Latex, Natural Rubber Allergy Mild Verified 06/09/24 10:45 [facility] Disclaimer: The information contained in this section may have been updated after the patient was seen, as this information can be updated by other users. Medical History , [employer]) Encounter for contraceptive surveillance Depression with anxiety Migraine IUD (intrauterine device) in place Surgical History , [employer]) Hx of rhinoplasty Family History , [employer]) Coronary artery disease Heart attack Social History , [employer]) Smoking Status: Current every day smoker tobacco type: smokeless tobacco alcohol intake: never current occupational status: employed Travel in the last 8 weeks?: Inside the [place] Have you lived/traveled outside US in past 30 days?: No Contact w/someone who lives/traveled outside US past 30 days?: No Exposure to someone with infectious disease in past 14 days?: No Do you have a fever (greater than 100.4 F or 38 C)?: No Have you tested positive for COVID-19?: No Exposed to someone with COVID-19 in past 14 days?: No Do you have a sore throat?: No Do you have a cough?: No Do you have any weakness?: No Do you have any diarrhea?: No Are you experiencing any unusual bleeding?: No Do you have any muscle aches/pain?: No Do you have any abdominal pain?: No Are you experiencing loss of taste or smell?: No Other Medical History Have you received the Pneumonia Vaccine: No ROS Obtained: Yes All systems reviewed & no additional complaints except as documented Physical Exam General General appearance: alert and in no apparent distress Expanded Head Exam Head image: 2 1. Fluid-filled erythematous rash no definitive well-defined vesicles there is swelling in the bilateral maxillary regions this does cross the midline Respiratory Respiratory exam: Present normal lung sounds bilaterally Cardiovascular Cardiovascular exam: Present regular rate Neurological Exam Neurological exam: Present alert and oriented X3 Medical Decision Making Medical Records Screening: Per USPSTF and CDC recommendations, given the prevalence of disease in our region, it is our hospital?s policy to screen for HIV and viral Hepatitis for all patients aged 18 and over and those with ongoing risk factors. Wilmer Inquiry Pt receiving controlled substance: No Vital Signs: 01/16/25 08:39 Temperature 98.2 F Temperature Source Oral Pulse Rate [Left Radial] 85 Respiratory Rate 20 Blood Pressure [Right Arm] 121/86 Blood Pressure Mean [Right Arm] 97 02 Sat by Pulse Oximetry 100 Oxygen Delivery Method Room Air Orders (Tests/Meds): ED MEDICATIONS Generic Name Dose Route Start Last Admin Trade Name Freq PRN Reason Stop Dose Admin Prednisone 60 mg 01/16/25 09:36 Prednisone 20mg Tab PO 01/16/25 09:37 ONCE ONE Medical Decision Narrative: 24-year-old with pruritic rash and what appears to be a fluid-filled component on the central aspect of her nasal bridge that crosses midline this is not consistent with varicella zoster or shingles. Also does not appear to be herpetic in nature specifically because of the pruritic component to this as well. Most likely this is contact dermatitis. Will give her a short course of steroids given the fact that is on her face and is causing her significant symptoms. Also will not provide topical steroids to her face and advised that she follow-up with dermatology if she is not improving in 1 to 2 weeks. Patient discharged in stable condition. No evidence of any eye involvement or concern for ocular infection. Critical Care Critical Care Time Critical Care Time: No
[2025-01-16 10:11] VITALS: BP 103/71; PULSE 72; RESP 18; TEMP 36.9; O2SAT 99
== END 2025-01-16 10:12 | disposition home or self-care (01) ==
PROVIDERS: Emergency Provider Student in an Organized Health Care Education/Training Program; PCP Nurse Practitioner
DX: L25.9 Unspecified contact dermatitis, unspecified cause (principal)
CPT/HCPCS: 99283

== ENCOUNTER 2025-01-21 11:17 | Outpatient (CLI) | payer OTHER, SELFPAY ==
[2025-01-21 18:50] LABS: HCG,Quantitative < 2 mIU/ml (0-5.42); T4 (Thyroxine) 8.5 ug/dl (5.53-11.0)
[2025-01-21 19:03] LABS: Thyroid Stimulating Hormone 0.98 uIU/mL (0.465-4.68)
[2025-01-23 06:55] LABS: FSH 2.6 mIU/mL (.); LH 2.3 mIU/mL (.); Progesterone 7.2 ng/mL (.); Triiodothyronine (T3) Free 3.9 pg/mL (2.0-4.4)
== END 2025-01-21 23:59 | disposition home or self-care (01) ==
LOC: LAB.DROPOF 01-25 11:06
PROVIDERS: PCP Nurse Practitioner; Visit Provider Nurse Practitioner Family
DX: O03.9 Complete or unspecified spontaneous abortion without complication (principal); B37.9 Candidiasis, unspecified
CPT/HCPCS: 82670; 83001; 83002; 84144; 84436; 84443; 84481; 84702; 87086

== ENCOUNTER 2025-03-21 13:33 | Outpatient (CLI) | payer OTHER, SELFPAY ==
--- OUTSIDE RECORDS SUMMARY | 2025-03-21 13:34 | XMS_ITS | Continuity of Care Document ---
Author Name [facility] Organization [facility] Care Team Providers Care Cyber Forensic Specialist Name Role Phone [facility] Unavailable Unavailable Problems Combined list of problems from Department of Defense and Veterans Affairs facilities. It does not include entries that were removed or entered in error. 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, 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) Active Condition 0420[facility] Headache Active Condition [facility] Headache due to injury of head and neck Active Condition [facility] IUD change due Active Condition 04[facility] Migraine variants Active Condition [facility]20 [facility] Migraine without aura Active Condition [facility] Tension headache Active [facility] UTI - Urinary tract infection Active Condition 0420[facility] Medications Combined list of outpatient medications from Department of Defense and Veterans Affairs facilities.Medications provided include 1) outpatient medications from the last 15 months, and 2) patient-reported medications. Medication Details Route Status Patient Instructions Prescription Expires Prescription Number Last Dispense Date Ordering Provider Order Date Order Qty Source acetaminoph en 500 mg oral tablet acetamin ophen 500 mg oral tablet Start Date: 07/23/19 Stop Date: 10/02/21 Status: Jethroi thelma Repeat number: 1 Discont inued 10/02/20212021 No Facilit y Access amitriptyli ne 10 mg oral tablet 1 tab(s), Oral, every day at bedtime, PRN headache , # 30 tab(s), 0 total refill(s ), [facility] : [facility] Oral (given by mouth) Discont inued 10/01/2022 2 2022 30.0 0420[facility] amitriptyli ne 10 mg oral tablet 1 tab(s), Oral, every day at bedtime, PRN headache , # 30 tab(s), 0 total refill(s ), [facility] Pharmacy : [facility] Oral (given by mouth) Discont inued 11/20/20222022 30.0 0420[facility] amitriptyli ne 10 mg oral tablet 1 tab(s), Oral, every day at bedtime, PRN headache , # 30 tab(s), 3 total refill(s ), [facility] : [facility] Oral (given by mouth) Discont inued 01/10/2023 3 2022 30.0 0420[facility] chlorhexidi ne 0.12% mucous membrane liquid chlorhex idine 0.12% mucous membrane liquid Start Date: 07/23/19 Stop Date: 10/02/21 Status: Disconti thelma Repeat number: 1 Discont inued 10/02/20212021 No Facilit y Access Diflucan 150 mg oral tablet 1 tab(s), Oral, As Directed , take 1 tab every 72h, # 2 tab(s), 0 total refill(s ), Acute, 01/10/23 12:10:00 PM CDT, Pharmacy : [facility] Oral (given by mouth) Discont inued 01/10/2023 3 2022 2.0 0420[facility] doxepin 3 mg oral tablet 1 tab(s), Oral, every day at bedtime, as needed for sleep, # 30 tab(s), 5 total refill(s ), Acute, [id number] Oral (given by mouth) Discont inued 09/25/20232023 30.0 0067[facility] Excedrin Oral, every 6 hr, 0 total refill(s ), Maintena nce Oral (given by mouth) Discont inued 10/01/20222022 0420[facility] Flexeril Oral, TID, 0 total refill(s ), Maintena nce Oral (given by mouth) Discont inued 09/25/20232023 0420[facility] fluconazole 150 mg oral tablet 1 tab(s), Oral, As Directed , X 1 days, # 1 tab(s), 0 total refill(s ), Acute, 11/21/22 9:10:00 AM CDT, Pharmacy : [facility] Oral (given by mouth) Complet ed 11/21/2022 3 2022 1.0 0420[facility] ibuprofen 600 mg oral tablet ibuprofe n 600 mg oral tablet Start Date: 07/23/19 Status: Ordered Repeat number: 1 Ordered 2019 No Facilit y Access PreviDent 5000 Booster 1.1% topical paste See Instruct ions, Apply 1 thin ribbon to toothbru sh. Bradford thorough ly at bedtime as directed by provider ., # 51 g, 0 total refill(s ), Maintena nce, Pharmacy : [facility] Discont inued 04/16/2022 2 2021 51.0 0420[facility] RIZATRIPTAN (rizatripta n benzoate), 10 MG, TABLET, ORAL, [employer] PHARMA, 18 ea. BLIST PACK Active [id number] 2023 36 Pharmac y Data Transac tion Service Facilit y rizatriptan 10 mg oral tablet See Instruct ions, Take one tablet by mouth at onset of migraine headache , may repeat dose every 2 hours up to a maximum of 30 mg in 24 hours, # 6 tab(s), 0 total refill(s ), Maintena nce Discont inued 11/20/20232023 6.0 [facility]20[facility] rizatriptan 10 mg oral tablet See Instruct ions, Take one tablet by mouth at onset of migraine headache , may repeat dose every 2 hours up to a maximum of 30 mg in 24 hours, # 12 tab(s), 1 total refill(s ), Acute, 02/19/24 11:00:00 PM CDT, [facility]acy : [id number] Complet ed 02/20/20242023 12.0 0420[facility] SUMAtriptan 25 mg oral tablet See Instruct ions, Take 1 tablet by mouth at onset of migraine headache . May repeat dose after 2 hours if needed. Max of 100mg within 24 hours, # 9 tab(s), 0 total refill(s ), Maintena nce, Pharmacy : [facility] Discont inued 05/13/2022 2 2021 9.0 0420[facility] SUMAtriptan 25 mg oral tablet See Instruct ions, Take 1 tablet by mouth at onset of migraine headache . May repeat dose after 2 hours if needed. Max of 100mg within 24 hours, # 9 tab(s), 0 total refill(s ), Maintena nce, Pharmacy : [facility] Discont inued 10/01/2022 2 2022 9.0 0420[facility] topiramate 25 mg oral capsule 1 cap(s), Oral, BID, 0 total refill(s ), Maintena nce Oral (given by mouth) Ordered 2023 0420[facility] Wellbutrin XL 150 mg/24 hours oral tablet, extended release 1 tab(s), Oral, every 24 hr, # 30 tab(s), 0 total refill(s ), Maintena nce, Pharmacy : [id number] Oral (given by mouth) Discont inued 09/30/20232023 30.0 0420[facility] Wellbutrin XL 150 mg/24 hours oral tablet, extended release 1 tab(s), Oral, every 24 hr, # 30 tab(s), 0 total refill(s ), [facility], [id number] Oral (given by mouth) Discont inued 10/28/20232023 30.0 0420[facility] Wellbutrin XL 150 mg/24 hours oral tablet, extended release 1 tab(s), Oral, every 24 hr, # 90 tab(s), 3 total refill(s ), [facility], [facility] Oral (given by mouth) Ordered 2023 90.0 0420[facility] Wellbutrin XL 150 mg/24 hours oral tablet, extended release 1 tab(s), Oral, every 24 hr, # 60 tab(s), 1 total refill(s ), [facility], Pharmacy : [facility] Oral (given by mouth) Complet ed 10/31/20232023 60.0 0420[facility] Wellbutrin XL 300 mg/24 hours oral tablet, extended release 1 tab(s), Oral, Daily, # 90 tab(s), 3 total refill(s ), [facility], Pharmacy : [facility] Oral (given by mouth) Discont inued 04/16/2022 2021 90.0 0420[facility] Allergies, Adverse Reactions, Alerts Combined list of allergies from Department of Defense and Veterans Affairs facilities. It does not include entries that were removed or entered in error. Substance Category Reaction Severity Reaction type Status Date Reported Comments Source Latex Allergy to substance Rash Moderate Active 0420[facility] LATEX, NATURAL RUBBER {Cla } Drug allergy (disorder) Rash or Itch, Other: POSITIVE LATEX IGE. active 9 [facility] Immunizations Combined list of available immunizations from the Department of Defense and Veterans Affairs facilities. Immunization Series Date Given Administered By Site Reaction Lot Number CVX Code Drug Manager Oncology Status Comments Source influenza virus vaccine, inactivated 2022 [id number] 88 complet ed influenza virus vaccine, inactivat ed 06/19/23 Recorded [facility] influenza, injectable, quadrivalent, contains preservative 0 2021 [id number] 158 Seqirus (SEQ) comple t ed influenza , injectabl e, quadrival ent, contains preservat kassandra DoD Influenza, injectable, quadrivalent, preservative free 0 2020 [id number] 150 vufind, Moment[employer]. (CSL) complet ed Influenza , injectabl e, quadrival ent, preservat kassandra free DoD SARS-COV-2 (COVID-19) vaccine, mRNA, spike protein, LNP, preservative free, 30 mcg/0.3mL dose 2 2020 [id number] [employer]Trails, [employer] (PFR) complet ed SARS-COV- 2 (COVID-19 ) vaccine, mRNA, spike protein, LNP, preservat kassandra free, 30 mcg/0.3mL dose DoD SARS-COV-2 (COVID-19) vaccine, mRNA, spike protein, LNP, preservative free, 30 mcg/0.3mL dose 1 2020 [id number] 208 [employer], [employer] (PFR) complet ed SARS-COV- 2 (COVID-19 ) vaccine, mRNA, spike protein, LNP, preservat kassandra free, 30 mcg/0.3mL dose DoD Influenza, injectable, quadrivalent, preservative free 0 2020 [id number] 150 Seqirus (SEQ) complet ed Influenza , injectabl e, quadrival ent, preservat kassandra free DoD influenza, injectable, quadrivalent- pf 2018 [id number] 039 150 Seqirus complet ed influenza , injectabl e, quadrival ent-pf 06/23/19 Given Ambulat ory Pharmac y influenza, injectable, quadrivalent- pf 2018 [id number] 039 150 Seqirus complet ed influenza , injectabl e, quadrival ent-pf 06/23/19 Given Ambulat ory Pharmac y Influenza, injectable, quadrivalent, preservative free 0 2018 [id number] 039 150 Seqirus (SEQ) complet ed Influenza [...] hepatitis B vaccine 3 2017 [id number] 104 Smithine (SKB) complet ed hepatitis A and hepatitis B vaccine DoD influenza, injectable, quadrivalent- pf 2017 [id number] 150 Seqirus complet ed influenza , injectabl e, quadrival ent-pf 06/03/18 Given Ambulat ory Pharmac y influenza, injectable, quadrivalent- pf 2017 [id number] 150 Seqirus complet ed influenza , injectabl e, quadrival ent-pf 06/03/18 Given Ambulat ory Pharmac y Influenza, injectable, quadrivalent, preservative free 0 2017 [id number] 150 Seqirus (SEQ) comple t ed Influenza [...] hepatitis A-hepatitis B vaccine 2017 [id number] 104 [facility] complet ed hepatitis A-hepatit is B vaccine 10/14/17 Given Ambulat ory Pharmac y hepatitis A and hepatitis B vaccine 1 2017 [id number] 104 [facility] (SKB) complet ed hepatitis A and hepatitis B vaccine DoD adenovirus vaccine, live 2017 [id number] 143 complet ed adenoviru s vaccine, live 10/09/17 Given Ambulat ory Pharmac y adenovirus vaccine, live 2017 [id number] 7 143 complet ed adenoviru s vaccine, live 10/09/17 Given Ambulat ory Pharmac y Adenovirus, type 4 and type 7, live, oral 0 2017 [id number] 7 143 (TRN) complet ed Adenoviru s, type 4 and type 7, live, oral DoD tetanus, diphtheria, acellular pertu is 2017 [id number] 115 sanofi pasteur complet ed tetanus, diphtheri a, acellular pertussis 10/08/17 Given Ambulat ory Pharmac y meningococcal A,C,Y,W-135 (MCV4P) 2017 [id number] 114 sanofi pasteur complet ed meningoco ccal A,C,Y,W-1 35 (MCV4P) 10/08/17 Given Ambulat ory Pharmac y poliovirus vaccine, inactivated 2017 [id number] 10 sanofi pasteur complet ed polioviru s vaccine, inactivat ed 10/08/17 Given Ambulat ory Pharmac y Influenza, inj, MDCK, quadrivalent- pf 2017 [id number] 171 Seqirus complet ed Influenza , inj, MDCK, quadrival ent-pf 10/08/17 Given Ambulat ory Pharmac y Influenza, inj, MDCK, quadrivalent- pf 2017 [id number] 171 Seqirus complet ed Influenza , inj, MDCK, quadrival ent-pf 10/08/17 Given Ambulat ory Pharmac y tetanus, diphtheria, acellular pertu is 2017 [id number] 115 sanofi pasteur complet ed tetanus, diphtheri a, acellular pertussis 10/08/17 Given Ambulat ory Pharmac y meningococcal A,C,Y,W-135 (MCV4P) 2017 [id number] 114 sanofi pasteur complet ed meningoco ccal A,C,Y,W-1 35 (MCV4P) 10/08/17 Given Ambulat ory Pharmac y poliovirus vaccine, inactivated 2017 [id number] 10 sanofi pasteur complet ed polioviru s vaccine, inactivat ed 10/08/17 Given Ambulat ory Pharmac y poliovirus vaccine, inactivated 0 2017 [id number] 10 Sanofi Pasteur (PMC) complet ed polioviru s vaccine, inactivat ed DoD meningococcal polysaccharid e (groups A, C, Y and W-135) diphtheria toxoid conjugate vaccine (MCV4P) 0 2017 [id number] 114 Sanofi Pasteur (PMC) complet ed meningoco ccal polysacch aride (groups A, C, Y and W-135) diphtheri a toxoid conjugate vaccine (MCV4P) DoD tetanus toxoid, reduced diphtheria toxoid, and acellular pertu is vaccine, adsorbed 0 2017 [id number] 115 Sanofi Pasteur (PMC) complet ed tetanus toxoid, reduced diphtheri a toxoid, and acellular pertussis vaccine, adsorbed DoD Influenza, injectable, [facility] [place] Canine Kidney, preservative free, quadrivalent 0 2017 [id number] 171 Seqirus (SEQ) comple t ed Influenza [...] Performed At: 1 [facility] [address] [facility] [address] [place] [address] YAW TAMEKA PHD Ph:[phone] 0420A-[facility] Infectio us Disease Source of Test.LC PD HealthAs sess ( 3 2:54 PM) 07/17 N 0420A-[facility] Urinalys is WBC Ur LC None seen 11/20 zzIOC Standard Urinalys is RBC Ur LC 0-2 11/20 zzIOC Standard Urinalys is Epithelial Cells (non renal) Ur LC 0-10 11/20 zzIOC Standard Urinalys is Casts Ur LC None seen 11/20 zzIOC Standard Urinalys is Bacteria LC Few 11/20 Result Comment: Performed At: [address] [id number] Ankit Johnson MD Ph:[phone] zzIOC Standard Chemistr y Bilirubin Ur LC Negative 11/20 0420A[facility] Chemistr y Appearance LC Clear 11/20 0420[facility] Chemistr y Occult Blood Ur LC Trace 11/20 A 0420A[facility] Chemistr y Urinalysis Reflex LC COMMENT 11/20 Result Comment: This specimen has reflexed to a Urine Culture. Performed At: [address] [id number] Ankit Johnson MD Ph:[phone] 0420[facility] Chemistr y Urine Color LC Yellow 11/20 0420[facility] Chemistr y Ketones Ur LC Negative 11/20 0420[facility] Chemistr y pH Ur LC 7.5 11/20 0420[facility] Chemistr y Microscopi c Exam LC See below: 11/20 Result Comment: Microscopic was indicated and was performed. Performed At: [address] [place] [id number] Ankit Johnson MD Ph:[phone] 0420A[facility] Chemistr y Glucose Ur LC Negative 11/20 0420[facility] Chemistr y Specific [place] 1.014 11/20 0420[facility] Chemistr y Nitrite, Urine Ur LC Negative 11/20 0420A-[facility] Chemistr y Protein Ur LC Negative 11/200A-[facility] Chemistr y Urobilinog en,Semi-Qn Ur LC 0.2 mg/dL 11/20[facility] Chemistr y WBC Esterase Ur LC Trace 11/20 A [facility] AP Specimen s Pap Lb (Liquid-ba [...] High,A-Abno rmal,AA-Cri tical Abnormal ----- Performed at: [address] [place] [id number] Alex Pham MD, Phone: [phone] [facility] [address] [place] [address] Alex Pham MD, Phone: Performed At: [address] [id number] Ankit Johnson MD Ph:[phone] 0420A-[facility] Vital Signs Combined list of inpatient and outpatient Vital Signs from Department of Defense and Veterans Affairs, ranging from 12 months to all on record, depending upon the facility. Vital Sign Value Date Comments Source Mean Arterial Pressure, Calc 90 mm[Hg] 11/22/2022 12:48:00 [facility] Peripheral Pulse Rate 83 bpm 11/22/2022 12:48:00 [facility] Respiratory Rate 18 br/min 11/22/2022 12:48:00 [address] Temperature Oral 36.8 Tamiko 11/22/2022 12:48:00 [facility] Systolic Blood Pressure 112 mm[Hg] 11/23/19 23 12:48:00 [facility] Diastolic Blood Pressure 79 mm[Hg] 023 12:48:00 [facility] Peripheral Pulse Rate 69 bpm 12/10/2021 12:23:00 [facility] Mean Arterial Pressure, Calc 99 mm[Hg] 12/10/2021 12:23:00 [facility] Temperature Oral 37 Tamiko 12/10/2021 12:23:00 [facility] Systolic Blood Pressure 124 mm[Hg] 12/11/19 22 12:23:00 [facility] Diastolic Blood Pressure 87 mm[Hg] 022 12:23:00 [facility] Peripheral Pulse Rate 89 bpm 11/20/2022 13:46:00 [facility] Mean Arterial Pressure, Calc 93 mm[Hg] 11/20/2022 13:46:00 0420-[facility] Systolic Blood Pressure 117 mm[Hg] 11/21/19 23 13:46:00 0420-[facility] Diastolic Blood Pressure 81 mm[Hg] 023 13:46:[address] [place] [address] Encounters Combined list of: 1) Encounters from Department of Veterans Affairs facilities going backup to the last 18 months, not all VA inpatient encounters are included; 2) Encounters from the Department of Defense facilities going backup to 280 months. Location Location Details Encounter Type Encounter Number Reason For Visit Attending Provider ADM Date DC Date Status Disposition Source [facility](Optomet ry [place]) OUTPATIENT [id number] ROUT EYE EXAM YANET MCBRIDE 09/07 Released w/o Limitations [facility](Opt ometry [place]) [facility](Allergy Clinic [facility]) OUTPATIENT [id number] CONTACT DERMATI TIS ANASTACIA SMITH 12/09 Released w/o Limitations [facility](All ergy Clinic [facility]) [facility](Allergy Clinic [facility]) OUTPATIENT [id number] Allergy f/u ANASTACIA SMITH 12/17 Released w/o Limitations [facility](All ergy Clinic FE) [facility](Allergy Clinic [facility]) OUTPATIENT [id number] skin test ANASTACIA SMITH 12/22 Released w/o Limitations [facility](All ergy Clinic FE) [facility](Dermato logy [place]) OUTPATIENT [id number] ALLERGI C CONTACT DERMATI TIS DUE TO OTHER AGENTS KARI CHIN 05/28 Released w/o Limitations [facility](Tucker matolog y [place]) [facility](Metallurgical Laboratory Assistant [place]) OUTPATIENT [id number] Well Women Exam JAVIER ANAYA 11/03 Released w/o Limitations [facility](Metallurgical Laboratory Assistant [place]) [facility](Metallurgical Laboratory Assistant [place]) OUTPATIENT [id number] control . JAVIER ANAYA 11/09 Released w/o Limitations [facility](Metallurgical Laboratory Assistant [place]) [facility](Metallurgical Laboratory Assistant [place]) TELE CONSULT [id number] Notes Entered by: ELKIN URBINA N 14 Jun 2020 0951 ------- ------- ------- ------- -- Request pap smear result ELKIN URBINA N 06/[address] [facility](Metallurgical Laboratory Assistant [place]) [facility](COVID19 Scrn & Test NMCP) OUTPATIENT [id number] ACTIVE DUTY = AD,HRAC CARLOS MORGAN @[employer] AG. COM NANCY THEODORE 01/24 Released w/o Limitations [facility](COV ID19 Scrn & Test [facility]) [facility](COVID19 Scrn & Test [facility]) OUTPATIENT [id number] SYMPTOM ATIC ACTIVE DUTY HAROON HURD 04/26 Released w/o Limitations [facility](COV ID19 Scrn & Test NMCP) [facility](Emergen cy Medicine NMCP) OUTPATIENT [id number] DANIELKEYSHA 04/26 Released w/o Limitations [facility](Annabel rgency Medicin e NMCP) [facility](Sl eep Clinic FB) OUTPATIENT [id number] G47.33 Sleep Apnea/f [id number]/7175 [id number]/ no email LEYDI HERNANDEZ 10/22 Released w/o Limitations [facility]( Sleep Clinic FB) [id number] [facility] issue of other medical certifi clau BEST 01/18 Discharge Disposition: Home or Self Care 7082C-[facility] ton Procedures Combined list of: 1) Procedures from Department of Veterans Affairs facilities going [facility], not all VA non-surgical procedures are included; 2) All procedures from the Department of Defense facilities. Procedure Procedure Type Code Date Perfomer Comments Sourc e No data available for this section Ambulato ry Pharmacy SCREENING PAPANICOLAOU SMEAR; OBTAINING, PREPARING AND CONVEYANCE OF CERVICAL OR VAGINAL SMEAR TO LABORATORY 2019 [facility] PERCUTANEOUS TESTS (SCRATCH, PUNCTURE, PRICK) WITH ALLERGENIC EXTRACTS, IMMEDIATE TYPE REACTION, INCLUDING TEST INTERPRETATION AND REPORT, SPECIFY NUMBER OF TESTS 2018 [facility] FITTING OF SPECTACLES, EXCEPT FOR APHAKIA; MONOFOCAL 2018 [facility] Allergy Percutaneous tests - allergenic extracts Allergy Percutaneous tests - allergenic extracts [id number] 2018 ANASTACIA SMITH Allergy 38Food & Aeroallergen pricks applied to bilateral forearms . Extracts provided by [facility] Allergy clinic and supplied by [employer] Allergen Extract Lab. Serums 27 Jan 2019.Allergy skintest procedure by Meg Clarke LPN [facility] Spectacles Services Fitting Monofocals (Not For Aphakia) [facility] Fitting Monofocals (Not For Aphakia) 14624 2018 YANET MCBRIDE Determination Of Refractive State Determination Of Refractive State 16086 2018 YANET MCBRIDE Ophthalmological New Patient Start [facility] Ophthalmological New Patient Start [facility] Care 43877 2018 YANET MCBRIDE Screening papanicolaou smear; obtaining, preparing and conveyance of cervical or vaginal smear to laboratory JAVIER ANAYA Non-Physician Phone Call To Patient/Provider Brief (5-10min) Non-Physician Phone Call To Patient/Provider Brief (5-10min) [id number] NANCY THEODORE Patient education, not otherwise cla ified, non-physician provider, individual, per se NANCY Garcia Brief communication technology-based service, e.g. virtual check-in, by a physician or other qualified health care profsharath staples who can report evaluation and management services, provided to an established patient, not originating from a related E/M service provided within the previous 7 days nor leading to an E/M service or procedure within the next 24 hours or soonest available appointment; 5-10 minutes of medical discu NANCY Garcia Social History Combined list of available smoking, tobacco, and other social history from Department of Defense and Veterans Affairs facilities. Social History Type Response Date Comment [facility] e Sex Representation Female (finding) 05/22/2020 Unknown Organization Sexual Orientation Ambula tory Pharmacy Gender identity Ambulator y Pharmacy This section is an empty social history section. DoD Assessment and Plan Combined list of future care activities from Department of Defense and Veterans Affairs facilities (e.g., assessment and plan notes, appointments, orders, and referrals). Additional future care activities may be listed in the Plan of Care section. Result Assessment and Plan Date Source Assessment and Plan Extracted from:Title : [facility] PHA Author: AURA ROOT F Date: 01/18/25 1. E ncounter for issue of other medical certificate Extracted from:Title: PHA/MHA Author: JUNIE NEWMAN NP Date: 12/19/23 1. 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 P kian see EPHA for full details. G en preventative health discussion with age specific guidelines/recommendations discussed. M adonis meets [facility] medical standards IAW COMDTINST M600.1 chapter 3 at this time. AFFD and cleared for retention and mobility. ? - N o r eferrals indicated at this time _ - I s d ue for IMR requirements _Pap smear already has referral - N ot d ue for preventative screening _ F/u PRN. Extracted from:Title: Rx renewed Author: JUNIE NEWMAN DELIVERY DRIVER/CUSTOMER SERVICE Date: 11/20/23 1. M igraine without aura Ho migraine under neurology Requesting rizatriptan renewal, tolerating it well no potential s/e and effective Rx refill done f/u as needed Orders: rizatriptan(rizatriptan 10 mg oral tablet), See [...] refill Author: JUNIE NEWMAN NP Date: 10/28/23 1. D epressed T-con 23 y/o female requesting refill Wellbutrin 150mg for depression tolerating it well no s/e denied SI/HI. F eeling great Orders: buPROPion(Wellbutrin XL 150 mg/24 hours oral tablet, extended release), 1 tab(s), Oral, every 24 hr, # 60 tab(s), 1 total refill(s), Maintenance, 1 tab(s) Oral every 24 hr, Pharmacy: [facility]/pharmacy #[id number] Extracted from:Title: Author: JUNIE NEWMAN NP Date: 09/25/23 1. D epressed T-con 23 y/o female Ho anxiety depression in the past was on Wellbutrin XL weaned off for months. She reported feeling depressed, no SI/HI. P ossibly triggered by T opiramate 25mg a nd R izatriptan 10mg f or migraines, just started PHQ 9 11, GAD7- 8 We will resume Wellbutrin XL [facility]mg [facility] [place] as preferred Declined psychotherapy F/u in 30 days Orders: buPROPion(Wellbutrin XL 150 mg/24 hours oral tablet, extended release), 1 tab(s), Oral, every 24 hr, # 30 tab(s), 0 total refill(s), Maintenance, 1 tab(s) Oral every 24 hr, Pharmacy: [facility]/pharmacy #[id number] [External Rx] Depression Screening 1. Little interest or pleasure in doing things : More than half the days 2. Feeling down, depressed, or hopeless : Several days PHQ-2 Depression Screening Score : 3 Score (HI) PHQ 9 Complete now : Yes 3. Trouble falling or staying asleep, or sleeping too much : Several days 4. Feeling Tired or Little Energy : Nearly every day 5. Poor Appetite or Overeating : Several days 6. Feeling bad about yourself or that you are a failure or have let yourself or your family down : ? S everal days 7. Trouble concentrating on things, such as reading the newspaper or watching television : ? More than half the days 8. Moving or speaking so slowly that other people have noticed, or being so fidgety or restless that you have been moving more than usual : Not at all 9. Thoughts that you would be better off or of hurting yourself in some way : Not at all 10. If you checked off any problems, how difficult have these problems made it for you to do your work, take care of things at home, or get along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
== END 2025-03-21 23:59 | disposition home or self-care (01) ==
LOC: LAB 13:34
PROVIDERS: PCP Nurse Practitioner; Visit Provider Nurse Practitioner Obstetrics & Gynecology
DX: Z34.90 Encounter for supervision of normal pregnancy, unspecified, unspecified trimester (principal)
CPT/HCPCS: 36415; 84144; 84702

== ENCOUNTER 2025-03-22 18:28 | Emergency (ER) | payer OTHER, SELFPAY ==
[2025-03-22 18:38] VITALS: BP 120/83; PULSE 88; RESP 18; TEMP 36.6; O2SAT 98; BMI 23.6
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
[2025-03-22 19:01] LABS: Microscopic, Urine URINE MICROSCOPIC (MICROSCOPIC)
[2025-03-22 19:02] LABS: Bilirubin,Urine Negative (Negative); Color,Urine YELLOW (Yellow); Glucose,Urine (UA) Negative (Negative); Ketones,Urine Negative (Negative); Leukocyte Esterase,Urine Negative (Negative); PH,Urine 5.5 (5.0-8.5); Protein,Urine Negative (Negative); Specific Gravity, Urine 1.025 (1.005-1.030); Urobilinogen,Urine 0.2 EU/dl (0.2)
--- NOTE | 2025-03-22 19:04 | ED_ITS ---
<Statement entered by Zabrina Lovell DO - 03/23/25 20:33> I was consulted by the [facility], and we discussed the complexity of problems being addressed. I approve the treatment and management plan for this patient's care in the emergency department, thus performing a substantial portion of the medical decision making. Zabrina Lovell DO Of note, patient is approximately 4 weeks by dates. Patient's last menstrual period was February 23. Per ACOG guidelines, patient does not need RhoGAM for pregnancies less than 12 weeks therefore patient was not given here in the emergency department. Patient had no acute pain in her abdomen, patient's abdomen was soft and nontender therefore low concern for ectopic at this time. Patient was instructed to follow-up with her [facility]IST for repeat testing in 48 hours. Ultrasound was not felt to provide any guidance or additional support given that patient's beta hCG is less than 1500. Patient was having very little bleeding therefore patient was felt to be appropriate for discharge at this time. Discharge Plan Disposition Patient Disposition: Home, Self-Care Condition: Good Prescriptions Prescriptions: New nitrofurantoin monohyd/m-cryst 100 mg capsule 100 mg PO BID 5 Days Qty: 10 0RF Rx Instructions: must administer with a meal/food No Action fluconazole 150 mg tablet 150 mg PO DAILY 3 Days Qty: 3 0RF hydrocortisone 0.5 % cream 1 applic topical BID PRN (Reason: rash) Qty: 28.4 0RF Referrals Follow up/Referrals: Radha Mayfield APRN [Primary Care Provider, Family Practice] - See instructions Activity Restrictions/Add. Instructions Additional Instructions/Restrictions: I have sent in an antibiotic to your pharmacy. Please take it till its gone. Please follow-up with your RETAIL [facility]ONE SPECIALIST within 48 hours or sooner if you have new or worsening signs or symptoms. Clinical Impressions Clinical Impression: Vaginal bleeding during Urinary tract infectious disease Qualifiers: Urinary tract infection type: site unspecified Hematuria presence: with hematuria Qualified Code(s): N39.0 - Urinary tract infection, site not specified Instructions Patient Instructions: DI for Acute Abdominal Pain Print Language Print Language: Mohawk Discharge ED Provider: Zabrina Lovell General Adult HPI General Chief complaint: Abdominal Pain Stated complaint: four weeks preg and bleeding,cramping Time Seen by Provider: 03/22/25 19:03 Mode of Arrival: Ambulatory Source of Information: Patient Description of Symptoms (Recalled from ER Triage Doc. by RN): Pt presents with c/o generalized lower abdominal pain that came on suddenly today. Pt desribes the pain as cramping and rates it as a 5/10. Pt denies n/v/d/constipation/urinary sx History of Present Illness HPI narrative: Patient presents for evaluation of vaginal spotting and abdominal cramping. Patient believes that she may be approximately 4 weeks . She is G2 Ab1. Her miscarriage was in September of this year. She had a quantitative hCG done yesterday and progesterone resulted today. Her hCG was 44 and her progesterone was 7.9. She began having some spotting that has picked up frequency and lower abdominal cramping. She denies dysuria fever chills hemoptysis hematochezia melena nausea vomiting diarrhea. Related Data Previous Rx's ?Medication ?Instructions ?Recorded fluconazole 150 mg tablet 150 mg PO DAILY 3 days #3 ta bs 01/21/25 hydrocortisone 0.5 % topical cream 1 applic topical BI D PRN rash 01/21/25 #28.4 grams nitrofurantoin 100 mg PO BID 5 days #10 cap s 03/22/25 monohydrate/macrocrystals 100 mg capsule Allergies Allergy/AdvReac Type Severity Reaction Status Date / Time Latex, Natural Rubber Allergy Mild Verified 01/21/25 10:36 [facility] Disclaimer: The information contained in this section may have been updated after the patient was seen, as this information can be updated by other users. Medical History Encounter for contraceptive surveillance Depression with anxiety Migraine IUD (intrauterine device) in place Surgical History Hx of rhinoplasty Family History Other Coronary artery disease Heart attack Social History (Updated 01/21/25 @ 10:37 by Radha Hu MA) Smoking Status: Former smoker tobacco type: smokeless tobacco alcohol intake: never current occupational status: employed Travel in the last 8 weeks?: Inside the [place] Have you lived/traveled outside US in past 30 days?: No Contact w/someone who lives/traveled outside US past 30 days?: No Exposure to someone with infectious disease in past 14 days?: No Do you have a fever (greater than 100.4 F or 38 C)?: No Have you tested positive for COVID-19?: No Exposed to someone with COVID-19 in past 14 days?: No Do you have a sore throat?: No Do you have a cough?: No Do you have any weakness?: No Do you have any diarrhea?: No Are you experiencing any unusual bleeding?: No Do you have any muscle aches/pain?: No Do you have any abdominal pain?: No Are you experiencing loss of taste or smell?: No Other Medical History Have you received the Pneumonia Vaccine: No ROS Obtained: Yes Systems reviewed as appropriate & no additional complaints except as documented Physical Exam General General appearance: alert and in no apparent distress Respiratory Respiratory exam: Present normal lung sounds bilaterally Cardiovascular Cardiovascular exam: Present regular rate Neurological Exam Neurological exam: Present alert and oriented X3 Medical Decision Making Medical Records Medical records reviewed: Yes I reviewed the patient's medical records. Screening: Per USPSTF and CDC recommendations, given the prevalence of disease in our region, it is our hospital?s policy to screen for HIV and viral Hepatitis for all patients aged 18 and over and those with ongoing risk factors. Wilmer Inquiry Pt receiving controlled substance: No Vital Signs: 03/22/25 18:38 03/22/25 20:15 Temperature 98 F 97.9 F Temperature Source Oral Oral Pulse Rate 62 Pulse Rate [Right] 88 Respiratory Rate 18 20 Blood Pressure 198/76 H Blood Pressure [Right Arm] 120/83 Blood Pressure Mean [Right Arm] 95 Blood Pressure Source [Right Arm] Automatic Cuff Blood Pressure Position Sitting Blood Pressure Position [Right Arm] Sitting 02 Sat by Pulse Oximetry 98 Oxygen Delivery Method Room Air Room Air Lab Data Lab results reviewed: Yes I reviewed the patient's lab results. Lab Results 03/22/25 18:47: Urine Color Yellow, Urine Appearance Clear, Urine pH 5.5, Ur Specific [place] 1.025, Urine Protein Negative, Urine Glucose (UA) Negative, Urine Ketones Negative, Urine Blood 3+ A, Urine Nitrate Negative, Urine B ilirubin Negative, Urine Urobilinogen 0.2, Ur Leukocyte Esterase Negative, Urine RBC 20-50, Urine WBC Occasional, Ur Squamous Epith Cells 10-20, Urine Bacteria 2+ 03/22/25 19:27: HCG, Quant 62 H, Blood Type A Negative, Antibody Screen Negative Orders (Tests/Meds): ED MEDICATIONS Generic Name Dose Route Start Last Admin Trade Name Stephenie PRN Reason Stop Dose Admin Nitrofurantoin Macrocrystals 100 mg 03/22/25 21:24 Nitrofurantoin 100mg Capsule PO 03/22/25 21:25 ONCE ONE ORDERS Category Date Time Status Type and Screen Stat BBK 03/22/25 19:27 Completed HCG,Quantitative Stat Lab 03/22/25 19:27 Completed Urinalysis and Microscopic Stat Lab 03/22/25 18:47 Completed Urine Culture Stat Micro 03/22/25 18:47 Received Medical Decision Narrative: In summary patient is a 24-year-old female who presents to the emergency department for evaluation of vaginal spotting and lower abdominal cramping. Patient is hemodynamically stable upon arrival, afebrile. Physical exam reveals a soft abdomen mildly tender to discomfort in the suprapubic area but no rebound or guarding or rigidity. Bowel sounds normal active.. Differential diagnosis includes urinary tract infection versus spotting during versus threatened etc. Initial workup will be conducted with urinalysis type and screen and quantitative hCG. Initial interventions are deferred until serum hCG is resulted. Initial workup reviewed by me and her urinalysis shows 3+ of blood nitrite negative leukocyte Estrace negative microscopic exam shows 20-50 red blood cells occasional white cells 10-20 epithelial cells and 2+ bacteria and her blood type is a negative and antibody screen negative. Serum hCG is 62 today. Given this I am going to treat for urinary tract infection and have the patient follow-up within 48 hours with her [facility]IST, sooner if she has any new or worsening symptoms she can return to the ER as needed. Patient given first dose of Macrobid here with the remainder sent to her pharmacy. Critical Care Critical Care Time Critical Care Time: No
[2025-03-22 19:24] LABS: RBC,Urine 20-50 #/hpf (0-3); WBC,Urine Occasional #/hpf (0-3)
[2025-03-22 19:25] LABS: Bacteria,Urine 2+ /lpf
[2025-03-22 20:15] VITALS: BP 198/76; PULSE 62; RESP 20; TEMP 36.6; O2SAT 96
--- NOTE | 2025-03-22 20:46 | PC.NURSE ---
lab contacted at this time regarding the pending hcg quant that is ordered,.
[2025-03-22] MEDS: NITROFURANTOIN 100MG CAPSULE 100 MG PO (21:40)
[2025-03-22 21:44] VITALS: BP 126/68; PULSE 68; RESP 18; TEMP 36.7; O2SAT 100
== END 2025-03-22 21:45 | disposition home or self-care (01) ==
PROVIDERS: Physician Assistant; Emergency Provider Student in an Organized Health Care Education/Training Program; PCP Nurse Practitioner
DX: O46.90 Antepartum hemorrhage, unspecified, unspecified trimester (principal); N39.0 Urinary tract infection, site not specified; Z3A.01 Less than 8 weeks gestation of pregnancy
CPT/HCPCS: 81001; 84702; 86850; 87086; 99283

== ENCOUNTER 2025-03-23 11:20 | Outpatient (CLI) | payer OTHER, SELFPAY ==
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
== END 2025-03-23 23:59 | disposition home or self-care (01) ==
LOC: LAB 11:21
PROVIDERS: PCP Nurse Practitioner; Visit Provider Nurse Practitioner Obstetrics & Gynecology
DX: Z34.90 Encounter for supervision of normal pregnancy, unspecified, unspecified trimester (principal)
CPT/HCPCS: 36415; 84702

== ENCOUNTER 2025-03-25 08:03 | Outpatient (CLI) | payer OTHER, SELFPAY ==
--- OUTSIDE RECORDS SUMMARY | 2025-03-25 08:05 | XMS_ITS | Continuity of Care Document ---
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 home: Medicines # Take wsgm-mpw-czqtpzc and prescription medicines only as told by [...] your health care provider. Please contact the [facility] Urology Department at /[phone] if you have any questions. Document Released: 05/28/2006 Document Revised: 02/25/2019 Document Reviewed: 02/25/2019 [employer] Interactive Patient Education # 2019 [employer] 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 Assessment Date/Time Source Assessment Type Assessment Skill Assessment Score Assessment Details No data available for this section
== END 2025-03-25 23:59 | disposition home or self-care (01) ==
LOC: LAB 08:04
PROVIDERS: PCP Nurse Practitioner; Visit Provider Nurse Practitioner Obstetrics & Gynecology
DX: O02.81 Inappropriate change in quantitative human chorionic gonadotropin (hCG) in early pregnancy (principal)
CPT/HCPCS: 36415; 84702

== ENCOUNTER 2025-04-10 15:20 | Emergency (ER) | payer OTHER, SELFPAY ==
[2025-04-10 15:25] VITALS: BP 126/81; PULSE 71; RESP 18; TEMP 36.8; O2SAT 99; BMI 23.6
--- NOTE | 2025-04-10 15:35 | PC.NURSE ---
at bedside with US
--- OUTSIDE RECORDS SUMMARY | 2025-04-10 15:39 | XMS_ITS | Continuity of Care Document ---
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 /[phone] if you have any questions. Document Released: 05/28/2006 Document Revised: 02/25/2019 Document Reviewed: 02/25/2019 [employer] Interactive Patient Education # 2019 [employer] 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 Assessment Date/Time Source Assessment Type Assessment Skill Assessment Score Assessment Details No data available for this section
[2025-04-10 16:02] LABS: Bilirubin,Urine Negative (Negative); Color,Urine YELLOW (Yellow); Glucose,Urine (UA) Negative (Negative); Ketones,Urine Negative (Negative); Leukocyte Esterase,Urine Negative (Negative); Microscopic, Urine URINE MICROSCOPIC (MICROSCOPIC); PH,Urine 7.0 (5.0-8.5); Protein,Urine Negative (Negative); Specific Gravity, Urine 1.015 (1.005-1.030); Urobilinogen,Urine 0.2 EU/dl (0.2)
--- NOTE | 2025-04-10 16:03 | HMH.EDGENADL ---
Discharge Plan Disposition Patient Disposition: Home, Self-Care Condition: Good Prescriptions Prescriptions: New cephalexin 500 mg capsule 500 mg PO TID 5 Days Qty: 15 0RF No Action progesterone micronized [Prometrium] 200 mg capsule 200 mg PO HS 30 Days Qty: 30 1RF Referrals Follow up/Referrals: Radha Mayfield APRN [Primary Care Provider, [facility]] - See instructions Activity Restrictions/Add. Instructions Additional Instructions/Restrictions: Take the antibiotics as prescribed for 5 days. Follow-up with your OB as scheduled on Friday. They can look at the urine culture and decide if you need to continue the antibiotics. Return to the emergency department for any acute or worsening severe abdominal pain. They can redraw your labs on Friday and do an ultrasound if needed. Clinical Impressions Clinical Impression: Vaginal bleeding before 22 weeks gestation, UTI (urinary tract infection) Instructions Patient Instructions: Early Bleeding Print Language Print Language: Luxembourger Discharge ED Provider: Zabrina Lovell Adult HPI General Chief complaint: Vaginal Bleeding Stated complaint: 6 Weeks ; Bleeding; Cramping Time Seen by Provider: 04/10/25 15:27 Mode of Arrival: Ambulatory Source of Information: Patient Description of Symptoms (Recalled from ER Triage Doc. by RN): anoop presents to the emergency department for spotting. patient states she is 6 weeks . the spotting started friday night, and she has noticed the bleeding progressing since then. she does not state that she is soaking thtorugh pads, but has passed some clots as well. she also stated she has a misscarriage in September. she also endorses burning when urinating. History of Present Illness HPI narrative: Patient is a 24-year-old female whose G2, P0 who presents to the emergency department for vaginal bleeding. Patient states that she is approximately 6 weeks by dates, last menstrual period was late January. Patient states that she started having some vaginal spotting today, that is dark blood in nature and is present when wiping. Patient has not had any significant blood clots or bright blood. Patient did have some abdominal cramping yesterday that has since resided. Patient had some back pain yesterday that has also since subsided. Patient states that she was seen in March and had a urinary tract infection, patient completed her antibiotics at that time. Patient has not seen OB for an ultrasound but has seen OB for multiple labs given that her beta-hCG levels were not uptrending. Has a scheduled appointment on Friday with OB. Patient states that she had a miscarriage back in September has no children at this time. Patient has no other complaints. Related Data Previous Rx's ?Medication ?Instructions ?Recorded progesterone micronized 200 mg 200 mg PO HS 30 days #30 caps 03/30/25 capsule (Prometrium) cephalexin 500 mg capsule 500 mg PO TID 5 days #15 caps 04/10/25 Allergies Allergy/AdvReac Type Severity Reaction Status Date / Time Latex, Natural Rubber Allergy Mild Verified 04/08/25 08:17 [facility] Disclaimer: The information contained in this section may have been updated after the patient was seen, as this information can be updated by other users. Medical History Encounter for contraceptive surveillance Depression with anxiety Migraine IUD (intrauterine device) in place Surgical History Hx of rhinoplasty Family History Other Coronary artery disease Heart attack Social History Smoking Status: Unknown if ever smoked alcohol intake: never current occupational status: employed Travel in the last 8 weeks?: Inside the [place] Have you lived/traveled outside US in past 30 days?: No Contact w/someone who lives/traveled outside US past 30 days?: No Exposure to someone with infectious disease in past 14 days?: No Do you have a fever (greater than 100.4 F or 38 C)?: No Have you tested positive for COVID-19?: No Exposed to someone with COVID-19 in past 14 days?: No Do you have a sore throat?: No Do you have a cough?: No Do you have any weakness?: No Do you have any diarrhea?: No Are you experiencing any unusual bleeding?: No Do you have any muscle aches/pain?: No Do you have any abdominal pain?: No Are you experiencing loss of taste or smell?: No Other Medical History Have you received the Pneumonia Vaccine: No ROS Obtained: Yes All systems reviewed & no additional complaints except as documented and Yes Systems reviewed as appropriate & no additional complaints except as documented Physical Exam General General appearance: alert and in no apparent distress Head Head exam: atraumatic, normocephalic and normal inspection Eye Eye exam: Present normal appearance, PERRL and EOMI; Absent scleral icterus ENT ENT exam: Present normal exam and normal external ear exam Neck Neck exam: Present normal inspection and full ROM Chest Chest inspection: Present normal inspection and symmetric chest wall rise Respiratory Respiratory exam: Present normal lung sounds bilaterally; Absent respiratory distress or wheezes Cardiovascular Cardiovascular exam: Present regular rate, normal rhythm and normal heart sounds Abdominal Exam Abdominal exam: Present soft, distention and other (No abdominal tenderness, no CVA tenderness); Absent tenderness, guarding or rebound Extremities Exam Extremities exam: Present normal inspection and full ROM Back Exam Back exam: Present normal inspection and full ROM Neurological Exam Neurological exam: Present alert and oriented X3 Psychiatric Psychiatric exam: Present normal affect and normal mood Skin Skin exam: Present warm and dry Medical Decision Making Medical Records Medical records reviewed: Yes I reviewed the patient's medical records. Screening: Per USPSTF and CDC recommendations, given the prevalence of disease in our region, it is our hospital?s policy to screen for HIV and viral Hepatitis for all patients aged 18 and over and those with ongoing risk factors. Wilmer Inquiry Pt receiving controlled substance: No Vital Signs: 04/10/25 15:25 04/10/25 16:24 Temperature 98.2 F Temperature Source Oral Pulse Rate 72 Pulse Rate [Right Radial] 71 Respiratory Rate 18 Blood Pressure 112/75 Blood Pressure [Right Arm] 126/81 Blood Pressure Mean [Right Arm] 96 Blood Pressure Source [Right Arm] Automatic Cuff Blood Pressure Position [Right Arm] Sitting 02 Sat by Pulse Oximetry 99 99 Oxygen Delivery Method Room Air Room Air Lab Data Lab results reviewed: Yes I reviewed the patient's lab results. Lab Results 04/10/25 15:50: Urine Color Yellow, Urine Appearance Clear, Urine pH 7.0, Ur Specific [place] 1.015, Urine Protein Negative, Urine Glucose (UA) Negative, Urine Ketones Negative, Urine Blood 3+ A, Urine Nitrate Negative, Urine Bilirubin Negative, Urine Urobilinogen 0.2, Ur Leukocyte Esterase Negative, Urine RBC 3-5, Urine WBC Occasional, Ur Squamous Epith Cells Occasional, Urine Bacteria Trace 04/10/25 16:00: WBC 6.0, RBC 4.27, Hgb 13.5, Hct 38.0, MCV 89.0, MCH 31.6 H, MCHC 35.5 H, RDW 11.5, Plt Count 220, MPV 10.1, Neut % (Auto) 47.5, Lymph % (Auto) 38.5, [place] % (Auto) 7.6, Eos % (Auto) 5.2, Baso % (Auto) 1.0, Neut # (Auto) 2.8, Lymph # (Auto) 2.3, [place] # (Auto) 0.5, Eos # (Auto) 0.3, Baso # (Auto) 0.1, Sodium 137, Potassium 3.6, Chloride 104, Carbon Dioxide 24, Anion Gap 12.6, BUN 9, Creatinine 0.70, Estimated Creat Clear 109, Estimated GFR 101, Est GFR ( Amer) 122, Glucose 107 H, Calcium 8.7, Total Bilirubin 0.6, AST 27, ALT 17, Alkaline Phosphatase 41, Total Protein 7.4, Albumin 4.5, Globulin 2.9, Albumin/Globulin Ratio 1.6, HCG, Quant 418 H, Blood Type A Negative, Antibody Screen Negative 04/10/25 16:00 04/10/25 16:00 Orders (Tests/Meds): ORDERS Category Date Time Status Type and Screen Stat BBK 04/10/25 16:00 Completed POCUS Point of Care (ER Only) Stat Exams 04/10/25 15:31 Completed CBC w/Auto Diff [Complete Blood Count Auto Diff] Stat Lab 04/10/25 16:00 Completed CMP [Comprehensive Metabolic Panel] Stat Lab 04/10/25 16:00 Completed HCG,Quantitative Stat Lab 04/10/25 16:00 Completed UA [Urinalysis and Microscopic] Stat Lab 04/10/25 15:50 Completed Urine Culture Stat Micro 04/10/25 15:44 Received Medical Decision Narrative: Patient is an otherwise healthy 24-year-old female who is G2, P0 who presented to the emergency department for vaginal spotting. On arrival, patient was hemodynamically stable with unremarkable vital signs. Differential includes but not limited to: Miscarriage, vaginal bleeding in , ectopic , urinary tract infection, amongst others. Patient's labs were reviewed and interpreted by myself, CBC showed no leukocytosis, hemoglobin was stable. CMP was unremarkable. Beta hCG was 418. Urine had trace bacteria, occasional white blood cells, negative leuk esterase 3-5 red blood cells. Bedside ultrasound was performed IUP was unable be visualized. Given patient's asymptomatic bacteria, patient was given an antibiotic for Keflex. Given that patient's beta hCG is 418, ultrasound was not indicated to rule out ectopic at this time. Patient has had appropriate uptrending beta hCG last was 151 on 03/25. Patient has a scheduled OB appointment on Friday which I recommended that patient keep so that she can get repeat blood work and ultrasound as needed. At this time, patient was otherwise discharged home in stable condition return precautions were discussed. POC US: Indication: , vaginal bleeding Findings: No IUP Impression: no IUP CPT Code: 47621-67 Critical Care Critical Care Time Critical Care Time: No
[2025-04-10 16:14] LABS: Bacteria,Urine Trace /lpf; Squamous Epithelial Cell,Urine Occasional #/hpf (0-5); WBC,Urine Occasional #/hpf (0-3)
[2025-04-10 16:17] LABS: Hematocrit 38.0 % (37.0-47.0); Hemoglobin 13.5 g/dL (12.2-16.2); Immature Granulocytes % 0.2 %; Mean Corpuscular HGB Conc 35.5 g/dL (31.8-35.4); Mean Corpuscular Hemoglobin 31.6 pg (27.0-31.2); Mean Corpuscular Volume 89.0 fl (81-99); Nucleated Red Blood Cells % 0 %; Platelet Count 220 K/mm3 (142-424); Red Blood Count 4.27 M/mm3 (4.20-5.40); Red Cell Distribution Width-SD 36.8 fL; White Blood Count 6.0 K/mm3 (4.8-10.8)
[2025-04-10 16:24] VITALS: BP 112/75; PULSE 72; O2SAT 99
[2025-04-10 16:28] LABS: Albumin Level 4.5 g/dl (3.5-5.0); Chloride 104 mmol/L (98-107); Sodium 137 mmol/L (136-145)
[2025-04-10 16:29] LABS: Potassium 3.6 mmoL/L (3.5-5.1)
[2025-04-10 16:31] LABS: Alanine Aminotransferase 17 U/L (12-78); Anion Gap 12.6 mEq/L (5-15); Aspartate Amino Transferase 27 U/L (14-36); Bilirubin,Total 0.6 mg/dl (0.2-1.3); Blood Urea Nitrogen 9 mg/dl (7-17); Carbon Dioxide 24 mmol/L (22.0-30.0); Creatinine Clearance Estimated 109 mL/min (50-200); Creatinine,Serum 0.70 mg/dl (0.52-1.04); Estimated Glomerular Filt Rate 101 ml/min (>60); GFR (African American) 122 ML/MIN (>60)
[2025-04-10 16:32] LABS: Albumin/Globulin Ratio 1.6 (1.1-1.8); Alkaline Phosphatase 41 U/L (38-126); Calcium 8.7 mg/dl (8.4-10.2); Globulin 2.9 g/dL (1.3-3.2); Glucose 107 mg/dl (74-100); Total Protein,Serum 7.4 g/dl (6.3-8.2)
--- NOTE | 2025-04-10 17:28 | ED_ITS ---
Discharge Plan Disposition Patient Disposition: Home, Self-Care Condition: Good Prescriptions Prescriptions: No Action progesterone micronized [Prometrium] 200 mg capsule 200 mg PO HS 30 Days Qty: 30 1RF cephalexin 500 mg capsule 500 mg PO TID 5 Days Qty: 15 0RF Referrals Follow up/Referrals: Radha Mayfield APRN [Primary Care Provider, Family Practice] - See instructions Activity Restrictions/Add. Instructions Additional Instructions/Restrictions: Take the antibiotics as prescribed for 5 days. Follow-up with your OB as scheduled on Friday. They can look at the urine culture and decide if you need to continue the antibiotics. Return to the emergency department for any acute or worsening severe abdominal pain. They can redraw your labs on Friday and do an ultrasound if needed. Clinical Impressions Clinical Impression: Vaginal bleeding before 22 weeks gestation, UTI (urinary tract infection) Instructions Patient Instructions: Early Bleeding Print Language Print Language: Finnish Discharge ED Provider: Zabrina Lovell General Adult HPI General Chief complaint: Vaginal Bleeding Stated complaint: 6 Weeks ; Bleeding; Cramping Time Seen by Provider: 04/10/25 15:27 Mode of Arrival: Ambulatory Source of Information: Patient Description of Symptoms (Recalled from ER Triage Doc. by RN): anoop presents to the emergency department for spotting. patient states she is 6 weeks . the spotting started friday night, and she has noticed the bleeding progressing since then. she does not state that she is soaking thtorugh pads, but has passed some clots as well. she also stated she has a misscarriage in September. she also endorses burning when urinating. History of Present Illness HPI narrative: Patient is a 24-year-old female who presents to the emergency department for vaginal bleeding. Patient states that she reports currently 6 weeks by dates. Patient states that she has has had some vaginal bleeding but has not had any significant amount and is not soaking through pads. Patient has had some small amount of clots. This is patient's second , had a miscarriage in September. Patient does report some urinary symptoms. Patient denies any abdominal cramping or back pain. Patient denies any fevers. Patient denies any nausea or vomiting chest pain shortness of breath or other associated symptoms. Related Data Previous Rx's ?Medication ?Instructions ?Recorded progesterone micronized 200 mg 200 mg PO HS 30 days #3 0 caps 03/30/25 capsule (Prometrium) cephalexin 500 mg capsule 500 mg PO TID 5 days #15 cap s 04/11/25 Allergies Allergy/AdvReac Type Severity Reaction Status Date / Time Latex, Natural Rubber Allergy Mild Verified 04/12/25 14:11 [facility] Disclaimer: The information contained in this section may have been updated after the patient was seen, as this information can be updated by other users. Medical History Encounter for contraceptive surveillance Depression with anxiety Migraine IUD (intrauterine device) in place Surgical History Hx of rhinoplasty Family History Other Coronary artery disease Heart attack Social History (Updated 04/12/25 @ 14:11 by GEOFFREY Tamayo) Smoking Status: Former smoker tobacco type: smokeless tobacco alcohol intake: never current occupational status: employed Travel in the last 8 weeks?: Inside the [place] Other Medical History Have you received the Pneumonia Vaccine: No ROS Obtained: Yes All systems reviewed & no additional complaints except as documented and Yes Systems reviewed as appropriate & no additional complaints except as documented Physical Exam General General appearance: alert and in no apparent distress Head Head exam: atraumatic, normocephalic and normal inspection Eye Eye exam: Present normal appearance, PERRL and EOMI; Absent scleral icterus ENT ENT exam: Present normal exam and normal external ear exam Neck Neck exam: Present normal inspection and full ROM Chest Chest inspection: Present normal inspection and symmetric chest wall rise Respiratory Respiratory exam: Present normal lung sounds bilaterally; Absent respiratory distress or wheezes Cardiovascular Cardiovascular exam: Present regular rate, normal rhythm and normal heart sounds Abdominal Exam Abdominal exam: Present soft and distention; Absent tenderness, guarding or rebound Extremities Exam Extremities exam: Present normal inspection and full ROM Back Exam Back exam: Present normal inspection and full ROM Neurological Exam Neurological exam: Present alert and oriented X3 Psychiatric Psychiatric exam: Present normal affect and normal mood Skin Skin exam: Present warm and dry Medical Decision Making Medical Records Screening: Per USPSTF and CDC recommendations, given the prevalence of disease in our region, it is our hospital?s policy to screen for HIV and viral Hepatitis for all patients aged 18 and over and those with ongoing risk factors. Wilmer Inquiry Pt receiving controlled substance: No Vital Signs: 04/10/25 15:25 04/10/25 16:24 04/10/25 17:35 Temperature 98.2 F 98.7 F Temperature Source Oral Oral Pulse Rate 72 84 Pulse Rate [Right Radial] 71 Respiratory Rate 18 20 Blood Pressure 112/75 114/77 Blood Pressure [Right Arm] 126/81 Blood Pressure Mean [Right Arm] 96 Blood Pressure Source Automatic Cuff Blood Pressure Source [Right Arm] Automatic Cuff Blood Pressure Position Sitting Blood Pressure Position [Right Arm] Sitting 02 Sat by Pulse Oximetry 99 99 Oxygen Delivery Method Room Air Room Air Room Air Lab Data Lab results reviewed: Yes I reviewed the patient's lab results. Lab Results 04/10/25 15:50: Urine Color Yellow, Urine Appearance Clear, Urine pH 7.0, Ur Specific [place] 1.015, Urine Protein Negative, Urine Glucose (UA) Negative, Urine Ketones Negative, Urine Blood 3+ A, Urine Nitrate Negative, Urine Bilirubin Negative, Urine Urobilinogen 0.2, Ur Leukocyte Esterase Negative, Urine RBC 3-5, Urine WBC Occasional, Ur Squamous Epith Cells Occasional, Urine Bacteria Trace 04/10/25 16:00: WBC 6.0, RBC 4.27, Hgb 13.5, Hct 38.0, MCV 89.0, MCH 31.6 H, M CHC 35.5 H, RDW 11.5, Plt Count 220, MPV 10.1, Neut % (Auto) 47.5, Lymph % (Auto) 38.5, [place] % (Auto) 7.6, Eos % (Auto) 5.2, Baso % (Auto) 1.0, Neut # (Auto) 2.8, Lymph # (Auto) 2.3, [place] # (Auto) 0.5, Eos # (Auto) 0.3, Baso # (Auto) 0.1, Sodium 137, Potassium 3.6, Chloride 104, Carbon Dioxide 24, Anion Gap 12.6, BUN 9, Creatinine 0.70, Estimated Creat Clear 109, Estimated GFR 101, Est GFR ( Amer) 122, Glucose 107 H, Calcium 8.7, Total Bilirubin 0.6, AST 27, ALT 17, Alkaline Phosphatase 41, Total Protein 7.4, Albumin 4.5, Globulin 2.9, Albumin/Globulin Ratio 1.6, HCG, Quant 418 H, Blood Type A Negative, Antibody Screen Negative 04/10/25 16:00 04/10/25 16:00 Orders (Tests/Meds): ORDERS Category Date Time Status Type and Screen Stat BBK 04/10/25 16:00 Completed POCUS Point of Care (ER Only) Stat Exams 04/10/25 15:31 Completed CBC w/Auto Diff [Complete Blood Count Auto Diff] Stat Lab 04/10/25 16:00 Completed CMP [Comprehensive Metabolic Panel] Stat Lab 04/10/25 16:00 Completed HCG,Quantitative Stat Lab 04/10/25 16:00 Completed UA [Urinalysis and Microscopic] Stat Lab 04/10/25 15:50 Completed Urine Culture Stat Micro 04/10/25 15:44 Completed Medical Decision Narrative: Patient is an otherwise healthy 24-year-old female who is G2, P0 who presents to the emergency department with vaginal bleeding. On arrival, patient was hemodynamically stable with unremarkable vital signs. Differential includes but not limited to: Vaginal bleeding in , miscarriage, UTI, etocpic, symptomatic anemia, amongst others. Patient's labs were reviewed and interpreted by myself: Patient CBC showed no leukocytosis, hemoglobin was stable. Beta-hCG was 412. Which is uptrending from patient's most recent. Patient UA did have bacteria, therefore I felt the patient warranted antibiotics. Given that patient has a beta-hCG less than 1500, likely unable to visualize IUP on ultrasound. At this time I recommended that patient follow-up with her [employer] to have repeat labs in 48 hours for repeat beta-hCG and ultrasound if necessary at that time. Patient understood and return precautions were discussed. Critical Care Critical Care Time Critical Care Time: No
[2025-04-10 17:35] VITALS: BP 114/77; PULSE 84; RESP 20; TEMP 37.1; O2SAT 98
== END 2025-04-10 17:36 | disposition home or self-care (01) ==
PROVIDERS: Emergency Provider Student in an Organized Health Care Education/Training Program; PCP Nurse Practitioner
DX: O20.9 Hemorrhage in early pregnancy, unspecified (principal); O23.41 Unspecified infection of urinary tract in pregnancy, first trimester; Z3A.01 Less than 8 weeks gestation of pregnancy
CPT/HCPCS: 36415; 80053; 81001; 84702; 85025; 86850; 87086; 99285

== ENCOUNTER 2025-04-12 14:57 | Outpatient (CLI) | payer OTHER, SELFPAY ==
[2025-04-12 15:28] LABS: Hematocrit 41.6 % (37.0-47.0); Hemoglobin 14.2 g/dL (12.2-16.2); Immature Granulocytes % 0.2 %; Mean Corpuscular HGB Conc 34.1 g/dL (31.8-35.4); Mean Corpuscular Hemoglobin 30.4 pg (27.0-31.2); Mean Corpuscular Volume 89.1 fl (81-99); Nucleated Red Blood Cells % 0 %; Platelet Count 235 K/mm3 (142-424); Red Blood Count 4.67 M/mm3 (4.20-5.40); Red Cell Distribution Width-SD 37.4 fL; White Blood Count 5.5 K/mm3 (4.8-10.8)
[2025-04-12 18:13] LABS: Hepatitis C Ab Qual. W/ RFX NEGATIVE (Negative)
[2025-04-13 09:15] LABS: Hepatitis B Surface Antigen Negative (Negative); Rubella Antibodies, IgG 1.27 index (Immune >0.99)
[2025-04-13 15:38] LABS: RPR W/RFX Titers Nonreactive (Nonreactive)
== END 2025-04-12 23:59 | disposition home or self-care (01) ==
LOC: LAB 14:58
PROVIDERS: PCP Nurse Practitioner; Visit Provider Nurse Practitioner Obstetrics & Gynecology
DX: O46.90 Antepartum hemorrhage, unspecified, unspecified trimester (principal); Z3A.00 Weeks of gestation of pregnancy not specified
CPT/HCPCS: 36415; 84702; 85025; 86592; 86762; 86803; 86850; 87340; 87389

== ENCOUNTER 2025-04-20 09:29 | Outpatient (CLI) | payer OTHER, SELFPAY ==
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
== END 2025-04-20 23:59 | disposition home or self-care (01) ==
LOC: LAB 09:29
PROVIDERS: PCP Nurse Practitioner Family; Visit Provider Nurse Practitioner Obstetrics & Gynecology
DX: O46.90 Antepartum hemorrhage, unspecified, unspecified trimester (principal); Z3A.00 Weeks of gestation of pregnancy not specified
CPT/HCPCS: 36415; 84702

== ENCOUNTER 2025-04-27 09:50 | Outpatient (CLI) | payer OTHER, SELFPAY ==
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
== END 2025-04-27 23:59 | disposition home or self-care (01) ==
LOC: LAB 09:51
PROVIDERS: PCP Nurse Practitioner Family; Visit Provider Nurse Practitioner Obstetrics & Gynecology
DX: O46.90 Antepartum hemorrhage, unspecified, unspecified trimester (principal); Z3A.00 Weeks of gestation of pregnancy not specified
CPT/HCPCS: 36415; 84702

== ENCOUNTER 2025-05-04 09:03 | Outpatient (CLI) | payer OTHER, SELFPAY ==
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
== END 2025-05-04 23:59 | disposition home or self-care (01) ==
LOC: LAB 09:03
PROVIDERS: PCP Nurse Practitioner Family; Visit Provider Nurse Practitioner Obstetrics & Gynecology
DX: Z34.90 Encounter for supervision of normal pregnancy, unspecified, unspecified trimester (principal); N92.6 Irregular menstruation, unspecified; Z3A.00 Weeks of gestation of pregnancy not specified
CPT/HCPCS: 36415; 84144; 84702

== ENCOUNTER 2025-05-30 11:07 | Outpatient (CLI) | payer OTHER, SELFPAY ==
[2025-05-30 11:40] LABS: Hematocrit 40.6 % (37.0-47.0); Hemoglobin 14.1 g/dL (12.2-16.2); Immature Granulocytes % 0.3 %; Mean Corpuscular HGB Conc 34.7 g/dL (31.8-35.4); Mean Corpuscular Hemoglobin 30.8 pg (27.0-31.2); Mean Corpuscular Volume 88.6 fl (81-99); Nucleated Red Blood Cells % 0 %; Platelet Count 210 K/mm3 (142-424); Red Blood Count 4.58 M/mm3 (4.20-5.40); Red Cell Distribution Width-SD 36.8 fL; White Blood Count 6.5 K/mm3 (4.8-10.8)
[2025-05-30 12:28] LABS: Alanine Aminotransferase 20 U/L (12-78); Albumin Level 4.2 g/dl (3.5-5.0); Albumin/Globulin Ratio 1.4 (1.1-1.8); Alkaline Phosphatase 44 U/L (38-126); Anion Gap 12.5 mEq/L (5-15); Aspartate Amino Transferase 24 U/L (14-36); Bilirubin,Total 0.8 mg/dl (0.2-1.3); Blood Urea Nitrogen 9 mg/dl (7-17); Calcium 9.1 mg/dl (8.4-10.2); Carbon Dioxide 24 mmol/L (22.0-30.0); Chloride 105 mmol/L (98-107); Creatinine,Serum 0.80 mg/dl (0.52-1.04); Estimated Glomerular Filt Rate 87 ml/min (>60); GFR (African American) 105 ML/MIN (>60); Globulin 3.0 g/dL (1.3-3.2); Glucose 89 mg/dl (74-100); Potassium 4.5 mmoL/L (3.5-5.1); Sodium 137 mmol/L (136-145); Total Protein,Serum 7.2 g/dl (6.3-8.2)
[2025-05-30 12:52] LABS: 25-OH Vitamin D, Total 40.5 ng/mL (30-100)
[2025-05-30 13:05] LABS: Thyroid Stimulating Hormone 1.33 uIU/mL (0.465-4.68)
[2025-05-30 19:03] LABS: Hemoglobin A1C 4.8 % (4.0-6.0)
[2025-05-31 15:25] LABS: Beta-2 Glycoprotein I Ab, IgG <9 (0-20); Beta-2 Glycoprotein I Ab, IgM <9 (0-32)
[2025-05-31 16:26] LABS: Anti-Cardio Antibody IgM <9 MPL U/mL (0-12); Anti-Cardiolipin Antibody IgG <9 GPL U/mL (0-14); Anticardiolipin Ab,IgA,Qn <9 APL U/mL (0-11)
== END 2025-05-30 23:59 | disposition home or self-care (01) ==
LOC: LAB 11:08
PROVIDERS: PCP Nurse Practitioner Family; Visit Provider Obstetrics & Gynecology
DX: N96 Recurrent pregnancy loss (principal)
CPT/HCPCS: 36415; 80053; 82306; 83036; 84144; 84443; 84702; 85025; 85597; 85598; 85610; 85613; 85670; 85730; 86146; 86147

== ENCOUNTER 2025-07-25 09:47 | Outpatient (CLI) | payer OTHER, SELFPAY | END 2025-07-25 23:59 | disposition home or self-care (01) | LOC: LAB 09:48 | PROVIDERS: PCP Nurse Practitioner Family; Visit Provider Obstetrics & Gynecology | DX: N96 Recurrent pregnancy loss (principal) | CPT/HCPCS: 36415; 84144; 84702 ==

== ENCOUNTER 2025-07-27 09:01 | Outpatient (CLI) | payer OTHER, SELFPAY | END 2025-07-27 23:59 | disposition home or self-care (01) | LOC: LAB 09:02 | PROVIDERS: PCP Nurse Practitioner Family; Visit Provider Obstetrics & Gynecology | DX: O09.299 Supervision of pregnancy with other poor reproductive or obstetric history, unspecified trimester (principal); Z3A.00 Weeks of gestation of pregnancy not specified | CPT/HCPCS: 36415; 84702 ==

== ENCOUNTER 2025-08-01 07:03 | Outpatient (CLI) | payer OTHER, SELFPAY | END 2025-08-01 23:59 | disposition home or self-care (01) | LOC: LAB 07:03 | PROVIDERS: PCP Nurse Practitioner Family; Visit Provider Obstetrics & Gynecology | DX: O26.20 Pregnancy care for patient with recurrent pregnancy loss, unspecified trimester (principal); Z3A.00 Weeks of gestation of pregnancy not specified | CPT/HCPCS: 36415; 84702 ==

== ENCOUNTER 2025-08-23 10:02 | Outpatient (CLI) | payer OTHER, SELFPAY ==
[2025-08-23 10:40] LABS: Hematocrit 36.6 % (37.0-47.0); Hemoglobin 13.1 g/dL (12.2-16.2); Immature Granulocytes % 0.2 %; Mean Corpuscular HGB Conc 35.8 g/dL (31.8-35.4); Mean Corpuscular Hemoglobin 31.2 pg (27.0-31.2); Mean Corpuscular Volume 87.1 fl (81-99); Nucleated Red Blood Cells % 0 %; Platelet Count 231 K/mm3 (142-424); Red Blood Count 4.20 M/mm3 (4.20-5.40); Red Cell Distribution Width-SD 37.4 fL; White Blood Count 5.1 K/mm3 (4.8-10.8)
[2025-08-23 11:45] LABS: Hepatitis C Ab Qual. W/ RFX NEGATIVE (Negative)
[2025-08-23 15:39] LABS: RPR W/RFX Titers Nonreactive (Nonreactive)
[2025-08-24 08:14] LABS: Hepatitis B Surface Antigen Negative (Negative)
[2025-08-24 10:12] LABS: Rubella Antibodies, IgG 1.10 index (Immune >0.99)
[2025-08-24 14:12] LABS: Anti-Cardio Antibody IgM <9 MPL U/mL (0-12); Anti-Cardiolipin Antibody IgG <9 GPL U/mL (0-14)
== END 2025-08-23 23:59 | disposition home or self-care (01) ==
LOC: LAB 10:03
PROVIDERS: PCP Nurse Practitioner Family; Visit Provider Obstetrics & Gynecology
DX: Z34.91 Encounter for supervision of normal pregnancy, unspecified, first trimester (principal); N96 Recurrent pregnancy loss
CPT/HCPCS: 36415; 85025; 86147; 86592; 86762; 86787; 86803; 86850; 87340; 87389